=== PATIENT | female | born 1960 | race Caucasian/White ===

== ENCOUNTER → 2016-07-21 | Day surgery (SDC) | payer OTHER ==
[2016-07-07 08:33] VITALS: BMI 26.0
[~2016-07-21] VITALS: Ht 165.1 cm; Wt 72.7 kg
[~2016-07-21] MED LIST: CARI350T28 PO; CLR10 PO; DEXAMETHASONE SOD INJ 4 MG/ML VIAL ONE; LIDOCAINE HCL 2% 2 ML VIAL (20MG/ML) ONE; LORA-741 PO; MIDAZOLAM HCL 1 MG/ML 2ML VIAL ONE; MTR600X PO; ONDANSETRON INJ 2 MG/ML 2 ML VIAL ONE; PRED20TA PO; PROPOFOL IV EMULSION 10 MG/ML 20 ML VIAL IV ONE; SODIUM CHLORIDE 0.9% 500ML 500 ML IV ONE
--- NOTE | 2016-07-21 12:09 | Endo History and Physical ---
History & Physical Date of Service: Jul 21, 2016. Chief Complaint: Screening Referring Physician: Florecita Curtis History of Present Illness 55 yo CF who presents for screening colonoscopy. Past Surgical History Hx Cardiac Surgery: No Hx Internal Defibrillator: No Hx Pacemaker: No Hx Abdominal Surgery: Yes (TUBAL OVARIAN CYST, CHOLEY, LOGAN BSO) Hx of Implantable Prosthesis: No Hx Post-Op Nausea and Vomiting: Yes Hx Cancer Surgery: No Hx Thoracic Surgery: No Hx Orthopedic: Yes (RT KNEE ARTHROSCOPY) Hx Urinary Tract Surgery: No Family History None Social History Smoking Status: Current Every Day Smoker Hx Substance Use: No Hx Alcohol Use: Yes (OCCASSIONALLY) Allergies Coded Allergies: Iodine (Verified Allergy, Mild, SKIN IRRITATION, 07/21/16) TOPICAL Current Medications Reported Home Medications Medications Dose Route/Sig Max Daily Dose Days Date Category Prednisone 20 Mg Tab 20 Mg PO DIRECTED PRN 07/07/16 Reported Ativan (Lorazepam) 0.5 Mg Tab 0.5 Mg PO HS PRN 07/07/16 Reported Soma (Carisoprodol) 350 Mg Tab 350 Mg PO TID PRN 07/07/16 Reported Ibuprofen 600 Mg Tab 1 Tab PO Q6H PRN 07/07/16 Reported Vital Signs Weight (Kilograms): 72.73 Height (Feet): 5 Height (Inches): 5 Physical Exam General Appearance: WD/WN, no apparent distress Respiratory/Chest: Auscultation: breath sounds normal Cardiovascular: Heart Auscultation: RRR Abdomen: Bowel Sounds: normal Inspection & Palpation: soft, non-distended, no tenderness, guarding & rebound Assessment and Plan Assessment: 55 yo CF who presents for screening colonoscopy. Plan: Proceed with colonoscopy.
[2016-07-21 12:11] VITALS: Ht 165.1 cm; Wt 72.7 kg
--- NOTE | 2016-07-21 13:28 | GI REPORT ---
Procedure Date: 07/21/2016 12:34 PM Procedure: Colonoscopy Indications: Screening for colorectal malignant neoplasm Medicines: Monitored Anesthesia Care Complications: No immediate complications. Estimated Blood Loss: Estimated blood loss: none. Procedure: Pre-Anesthesia Assessment: - Prior to the procedure, a History and Physical was performed, and patient medications and allergies were reviewed. The patient's tolerance of previous anesthesia was also reviewed. The risks and benefits of the procedure and the sedation options and risks were discussed with the patient. All questions were answered, and informed consent was obtained. Prior Anticoagulants: The patient has taken no previous anticoagulant or antiplatelet agents. ASA Grade Assessment: II - A patient with mild systemic disease. After reviewing the risks and benefits, the patient was deemed in satisfactory condition to undergo the procedure. After I obtained informed consent, the scope was passed under direct vision. Throughout the procedure, the patient's blood pressure, pulse, and oxygen saturations were monitored continuously. The scope was introduced through the anus and advanced to the terminal ileum. The colonoscopy was performed without difficulty. The patient tolerated the procedure well. The quality of the bowel preparation was good. The terminal ileum, ileocecal valve, appendiceal orifice, and rectum were photographed. Findings: Three sessile polyps were found in the sigmoid colon and in the transverse colon. The polyps were 3 to 6 mm in size. These polyps were removed with a hot snare. Resection was complete, but the polyp tissue was only partially retrieved. The exam was otherwise without abnormality. Impression: - Three 3 to 6 mm polyps in the sigmoid colon and in the transverse colon, removed with a hot snare. Complete resection. Partial retrieval. - The examination was otherwise normal. Recommendation: - Resume previous diet. - Continue present medications. - Repeat colonoscopy for surveillance based on pathology results. - Return to primary care physician as previously scheduled. Johan Brizuela DO 07/21/2016 1:27:13 PM This report has been signed electronically. Note Initiated On: 07/21/2016 12:34 PM
--- NOTE | 2016-07-21 13:35 | Discharge Instructions ---
Endoscopy Patient Instructions Date / Procedure(s) Performed Jul 21, 2016. Colonoscopy Allergy Information Coded Allergies: Iodine (Verified Allergy, Mild, SKIN IRRITATION, 07/21/16) TOPICAL Discharge Date / Findings Jul 21, 2016. Colon polyps Medication Instructions OK to resume all medications today as prescribed Reported Home Medications Medications Dose Route/Sig Max Daily Dose Days Date Category Prednisone 20 Mg Tab 20 Mg PO DIRECTED PRN 07/07/16 Reported Ativan (Lorazepam) 0.5 Mg Tab 0.5 Mg PO HS PRN 07/07/16 Reported Soma (Carisoprodol) 350 Mg Tab 350 Mg PO TID PRN 07/07/16 Reported Ibuprofen 600 Mg Tab 1 Tab PO Q6H PRN 07/07/16 Reported Provider Instructions Activity Restrictions - No exercising or heavy lifting for 24 hours. - Do not drink alcohol the day of the procedure. - Do not drive a car or operate machinery until the day after the procedure. - Do not make any important decisions or sign important papers in 24 hours after the procedure. Following Day: - Return to full activity which may include returning to work/school. Diet Start your diet with liquids and light foods (jello, soup, juice, toast). Then eat your usual diet if not nauseated. Treatment For Common After Affects For mild abdominal pain, bloating, or excessive gas: - Rest - Eat lightly - Lie on right side Follow-Up Information Follow-up with Florecita HAM as scheduled Anesthesia Information What You Should Know You have had a procedure that required some medicine to reduce anxiety and discomfort. This treatment is called moderate sedation. After receiving the treatment, you may be sleepy, but you will be able to breathe on your own. The effects of the treatment may last for several hours. Follow these instructions along with Activity/Diet recommendations noted above: * Do NOT do anything where dizziness or clumsiness would be dangerous. * Rest quietly at home today, then you can be up and about tomorrow. * Have a responsible person stay with you the rest of today. * You may have had an I.V. today. If so, you may take the dressing off later today. Recommendations Call your doctor if: * Trouble breathing * Continuous vomiting for more than 24 hours * Temperature above 101 degrees * Severe abdominal pain or bloating * Pain not relieved by pain medicine ordered * There is increased drainage or redness from any incision * A large amount of rectal bleeding greater than 2-3 tablespoons. (If you had a polyp/s removed or have hemorrhoids, a small amount of blood - from the rectum is to be expected.) * You have any unanswered questions or concerns. IN THE EVENT OF A SERIOUS EMERGENCY, GO TO THE NEAREST EMERGENCY ROOM Your discharge instructions were prepared by provider Johan Brizuela. Patient Instructions Signature Page Debbie Dawkins Patient (or Guardian) Signature/Date: I have read and understand the instructions given to me by my caregivers. Caregiver/RN/Doctor Signature/Date: The above-named patient and/or guardian has received patient instructions on this date. + Original Patient Signature Page (only) stays with chart. Please make copy for patient.
[2016-07-21 13:58] VITALS: BP 125/76; PULSE 77; O2SAT 100
--- NOTE | 2016-07-21 14:15 | Anesthesiology Progress Note ---
Anesthesia Post Op Note Date & Time Jul 21, 2016 at 14:15 Vital Signs Pain Intensity: 0 Vital Signs Past 12 Hours Date Time Temp Pulse Resp B/P Pulse Ox O2 Delivery O2 Flow Rate FiO2 07/21/16 13:58 77 20 125/76 100 Room Air 07/21/16 13:46 77 20 137/79 100 Room Air 07/21/16 13:30 75 20 126/82 100 Room Air 07/21/16 12:20 36.8 84 20 122/71 98 Room Air Notes Mental Status: alert / awake / arousable, participated in evaluation Pt Amnestic to Procedure: Yes Nausea / Vomiting: adequately controlled Pain: adequately controlled Airway Patency, RR, SpO2: stable & adequate BP & HR: stable & adequate Hydration State: stable & adequate Anesthetic Complications: no major complications apparent
== END | disposition home or self-care (01) ==
LOC: C.GI 11:27
PROVIDERS: ATTEND Internal Medicine
DX: Z12.11 Encounter for screening for malignant neoplasm of colon (principal); D12.5 Benign neoplasm of sigmoid colon; D12.3 Benign neoplasm of transverse colon; Z90.49 Acquired absence of other specified parts of digestive tract; F17.200 Nicotine dependence, unspecified, uncomplicated; Z68.26 Body mass index [BMI] 26.0-26.9, adult

== ENCOUNTER 2016-09-14 11:08 | Emergency (ER) | payer OTHER ==
[~2016-09-14] VITALS: Ht 165.1 cm; Wt 75.5 kg
[~2016-09-14 11:08] MED LIST changes: -CLR10 PO; -DEXAMETHASONE SOD INJ 4 MG/ML VIAL ONE; -LIDOCAINE HCL 2% 2 ML VIAL (20MG/ML) ONE; -MIDAZOLAM HCL 1 MG/ML 2ML VIAL ONE; -ONDANSETRON INJ 2 MG/ML 2 ML VIAL ONE; -PROPOFOL IV EMULSION 10 MG/ML 20 ML VIAL IV ONE; -SODIUM CHLORIDE 0.9% 500ML 500 ML IV ONE
[2016-09-14 11:13] VITALS: TEMP 37.1; Ht 165.1 cm; Wt 75.5 kg
[2016-09-14] MEDS ORDERED: CLR10 PO (11:51)
[2016-09-14] MEDS ORDERED: SODIUM CHLORIDE 0.9% 500ML 500 ML IV STA (12:46)
[2016-09-14] MEDS ORDERED: ONDANSETRON INJ 2 MG/ML 2 ML VIAL IV STA (12:46)
--- NOTE | 2016-09-14 13:11 | DIAGNOSTIC IMAGING REPORT ---
CHEST ONE VIEW PORTABLE CLINICAL HISTORY: double vision mental status change COMPARISON STUDY: No previous studies for comparison. FINDINGS: The bones soft tissues and hemidiaphragms are normal. The cardiomediastinal silhouette is normal. The lungs are clear. The pulmonary vasculature is normal. IMPRESSION: Negative chest. Electronically signed by: Jh Manzano M.D. 09/14/2016 1:10 PM Dictated Date/Time: 09/14/2016 1:09 PM
[2016-09-14 13:13] LABS: BASO % 0.4 %; BASO ABS # 0.04 K/uL (0-0.2); COMPLETE YES; EOS % 4.3 %; HEMATOCRIT 45.1 % (37-47); IG% 0.2 %; LYMPH % 16.9 %; MEAN CELL VOLUME 92.4 fL (80-100); MEAN CORPUSCULAR HGB CONC 34.6 g/dl (32-36); MEAN PLATELET VOLUME 9.9 fL (7.4-10.4); MONO % 7.8 %; NEUT % 70.4 %; PLATELET COUNT 268 K/uL (130-400); RED BLOOD COUNT 4.88 M/uL (4.2-5.4); WHITE BLOOD COUNT 9.49 K/uL (4.8-10.8)
--- NOTE | 2016-09-14 13:27 | DIAGNOSTIC IMAGING REPORT ---
HEAD CT NONCONTRAST CT DOSE: 537.48 mGy.cm HISTORY: double vision and decreased vision w/ head TECHNIQUE: Multiaxial CT images of the head were performed without the use of intravenous contrast. Comparison: None. Findings: The paranasal sinuses and mastoid air cells are clear. The calvarium and skull base are intact. The ventricles and sulci are within normal limits. There is no mass, hematoma, midline shift, or acute infarct. Impression: No acute intracranial abnormality. Electronically signed by: Jh Manzano M.D. 09/14/2016 1:26 PM Dictated Date/Time: 09/14/2016 1:25 PM
[2016-09-14 13:29] LABS: CALCIUM 9.3 mg/dl (8.5-10.1); CREATININE 0.81 mg/dl (0.60-1.20)
--- NOTE | 2016-09-14 14:20 | DIAGNOSTIC IMAGING REPORT ---
Brain MRI WITHOUT CONTRAST HISTORY: Mental status change double vision and decreased vision w/ DOWELL TECHNIQUE: Multiplanar multisequence MRI of the brain was performed without the use of contrast. COMPARISON STUDY: None. FINDINGS: There are no areas of restricted diffusion to suggest acute infarction. The midline structures are intact. The paranasal sinuses are clear. The mastoid air cells are clear. The ventricles and sulci are within normal limits for age. There is no mass, hematoma, midline shift. The major vascular flow-voids at the skull base are well maintained. IMPRESSION: No acute intracranial abnormality. Electronically signed by: Jh Manzano M.D. 09/14/2016 2:19 PM Dictated Date/Time: 09/14/2016 2:11 PM
[2016-09-14 15:13] VITALS: BP 156/108; PULSE 75; O2SAT 97
--- NOTE | 2016-09-14 18:52 | EMERGENCY ROOM VISIT NOTE ---
History Report prepared by Toy: Lisha Chacon Under the Supervision of: Dr. Tomás Jain D.O. First contact with patient: 12:32 Chief Complaint: HYPERTENSION Stated Complaint: DOUBLE VISION, ELEVATED BP History of Present Illness The patient is a 55 year old female who presents to the Emergency Room with complaints of constant double vision beginning today. The patient states that 2 days ago she started to feel like she couldn't focus but cannot describe the feeling because she has never had this before. She notes that today she is seeing two images side by side horizontally. She reports that she was concerned that her blood sugar was low because her mother has diabetes but it was not low. The patient complains of double vision beginning today, lightheadedness beginning 2 days ago, headache, right eye blurriness, ringing in ears, and runny nose. She denies any cough, weakness, trouble swallowing, fevers, chest pain, shortness of breath, nausea, vomiting, diarrhea. The patient notes that if one eye is closed her symptoms are relieved completely. 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 Source of History: patient Onset: today Position: eye Quality: other (double vision) Timing: constant Modifying Factors (Relieving): other (covering right eye) Associated Symptoms: + headache, No SOB, No chest pain, No cough, No diarrhea, No fevers, No nausea, No vomiting, No weakness Note: The patient complains of double vision beginning today, lightheadedness beginning 2 days ago, left eye blurriness, ringing in ears, and runny nose. She denies any trouble swallowing. Review of Systems See HPI for pertinent positives & negatives. A total of 10 systems reviewed and were otherwise negative. Past Medical & Surgical Medical Problems: (1) No chronic problems Family History Diabetes mellitus Social History Smoking Status: Current Every Day Smoker Alcohol Use: occasionally Drug Use: none Marital Status: single Occupation Status: employed Current/Historical Medications Scheduled PRN Loratadine (Claritin), 10 MG PO DAILY PRN for PRN Allergies Coded Allergies: Iodine (Verified Allergy, Mild, SKIN IRRITATION, 09/14/16) TOPICAL Physical Exam Vital Signs Date Time Temp Pulse Resp B/P Pulse Ox O2 Delivery O2 Flow Rate FiO2 09/14/16 15:13 75 18 156/108 97 09/14/16 14:27 76 18 158/96 94 Room Air 09/14/16 13:16 85 16 155/100 97 Room Air 09/14/16 13:04 85 09/14/16 12:43 75 16 137/115 97 Room Air 09/14/16 11:13 37.1 102 20 161/104 96 Room Air Physical Exam GENERAL: sitting up in bed, alert, well appearing, well nourished, no distress, non-toxic EYE EXAM: normal conjunctiva, PERRL and EOM's intact OROPHARYNX: no exudate, no erythema, lips, buccal mucosa, and tongue normal and mucous membranes are moist NECK: supple, no nuchal rigidity, no adenopathy, non-tender LUNGS: Clear to auscultation. Normal chest wall mechanics HEART: no murmurs, S1 normal and S2 normal ABDOMEN: abdomen soft, non-tender, normo-active bowel sounds, no masses, no rebound or guarding. BACK: Back is symmetrical on inspection and there is no deformity, no midline tenderness, no CVA tenderness. SKIN: no rashes and no bruising UPPER EXTREMITIES: upper extremities are grossly normal. LOWER EXTREMITIES: No pitting edema. NEURO EXAM: Normal sensorium, cranial nerves II-XII intact, normal speech, no weakness of arms, no weakness of legs. No drift. Finger to nose intact. Gross sensation intact. Rapid alternating movements of upper extremities intact. Medical Decision & Procedures ER Provider Diagnostic Interpretation: Xray results per the radiologist and my interpretation. Other results have been interpreted by the radiologist and reviewed by me. HEAD CT NONCONTRAST Comparison: None. Findings: The paranasal sinuses and mastoid air cells are clear. The calvarium and skull base are intact. The ventricles and sulci are within normal limits. There is no mass, hematoma, midline shift, or acute infarct. Impression: No acute intracranial abnormality. Electronically signed by: Jh Manzano M.D. 09/14/2016 1:26 PM Dictated Date/Time: 09/14/2016 1:25 PM CHEST ONE VIEW PORTABLE FINDINGS: The bones soft tissues and hemidiaphragms are normal. The cardiomediastinal silhouette is normal. The lungs are clear. The pulmonary vasculature is normal. IMPRESSION: Negative chest. Electronically signed by: Jh Manzano M.D. 09/14/2016 1:10 PM Dictated Date/Time: 09/14/2016 1:09 PM Brain MRI WITHOUT CONTRAST FINDINGS: There are no areas of restricted diffusion to suggest acute infarction. The midline structures are intact. The paranasal sinuses are clear. The mastoid air cells are clear. The ventricles and sulci are within normal limits for age. There is no mass, hematoma, midline shift. The major vascular flow-voids at the skull base are well maintained. IMPRESSION: No acute intracranial abnormality. Electronically signed by: Jh Manzano M.D. 09/14/2016 2:19 PM Dictated Date/Time: 09/14/2016 2:11 PM Laboratory Results 09/14/16 12:55 Red Blood Count 4.88, Mean Corpuscular Volume 92.4, Mean Corpuscular Hemoglobin 32.0, Mean Corpuscular Hemoglobin Concent 34.6, Mean Platelet Volume 9.9, Neutrophils (%) (Auto) 70.4, Lymphocytes (%) (Auto) 16.9, Monocytes (%) (Auto) 7.8, Eosinophils (%) (Auto) 4.3, Basophils (%) (Auto) 0.4, Neutrophils # (Auto) 6.68, Lymphocytes # (Auto) 1.60, Monocytes # (Auto) 0.74, Eosinophils # (Auto) 0.41, Basophils # (Auto) 0.04 09/14/16 12:55 Test 09/14/16 12:55 White Blood Count 9.49 K/uL (4.8-10.8) Red Blood Count 4.88 M/uL (4.2-5.4) Hemoglobin 15.6 g/dL (12.0-16.0) Hematocrit 45.1 % (37-47) Mean Corpuscular Volume 92.4 fL (80-100) Mean Corpuscular Hemoglobin 32.0 pg (25-34) Mean Corpuscular Hemoglobin Concent 34.6 g/dl (32-36) Platelet Count 268 K/uL (130-400) Mean Platelet Volume 9.9 fL (7.4-10.4) Neutrophils (%) (Auto) 70.4 % Lymphocytes (%) (Auto) 16.9 % Monocytes (%) (Auto) 7.8 % Eosinophils (%) (Auto) 4.3 % Basophils (%) (Auto) 0.4 % Neutrophils # (Auto) 6.68 K/uL (1.4-6.5) Lymphocytes # (Auto) 1.60 K/uL (1.2-3.4) Monocytes # (Auto) 0.74 K/uL (0.11-0.59) Eosinophils # (Auto) 0.41 K/uL (0-0.5) Basophils # (Auto) 0.04 K/uL (0-0.2) RDW Standard Deviation 44.5 fL (36.4-46.3) RDW Coefficient of Variation 13.1 % (11.5-14.5) Immature Granulocyte % (Auto) 0.2 % Immature Granulocyte # (Auto) 0.02 K/uL (0.00-0.02) Anion Gap 9.0 mmol/L (3-11) Est Creatinine Clear Calc Drug Dose 79.8 ml/min Estimated GFR () 94.8 Estimated GFR (Non- 81.8 BUN/Creatinine Ratio 20.0 (10-20) Calcium Level 9.3 mg/dl (8.5-10.1) Laboratory results per my review. Medications Administered Medications (Trade) Dose Ordered Sig/Hilario Route Start Time Stop Time Status Last Admin Dose Admin Sodium Chloride (Nss 500ml) 500 ml @ 999 mls/hr Q31M STAT IV 09/14/16 12:46 09/14/16 13:16 DC 09/14/16 12:46 999 MLS/HR Ondansetron HCl (Zofran Inj) 4 mg NOW STAT IV 09/14/16 12:46 09/14/16 12:47 DC 09/14/16 13:12 4 MG ED Course ED COURSE: Vital signs were reviewed and normal The patients medical record was reviewed The above diagnostic studies were performed and reviewed. ED treatments and interventions as stated above. 1236: The patient was evaluated in room A9B. A complete history and physical examination was performed. 1246: Zofran Inj 4mg IV, Sodium Chloride 500 ml @ 999 mls/hr IV. 1436: I spoke to Dr. Renea Monson. She agrees with having the patient follow up. 1504: Upon reevaluation, the patient is hemodynamically stable.I discussed my findings with the patient and she understands and agrees with the treatment plan. Based on the patients age, coexisting illnesses, exam and lab findings the decision to treat as an outpatient was made. The patient remained stable while under my care. The patient appeared well at the time of discharge. Medical Decision Differential Diagnosis includes but is not limited to headache, tension headache , cluster headache, migraine, subarachnoid hemorrhage, meningitis, mass, central venous thrombus, concussion, trauma and epidural/subdural hemorrhage. Patient is a 55-year-old female who presents the ER for bilateral double vision. She also complains of mild lightheadedness. She notes that the symptoms completely resolved which closes one eye. She is completely neurologically intact. 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 CT head was unremarkable. I recommended MRI and she initially declined but eventually agreed to MRI. MRI brain was completely negative. Labs were unremarkable as well. I discussed case with neurology and they agree with an outpatient follow-up. I recommend that she follow-up with her hot shot as I do feel this is likely secondary to peripheral eye muscle since the stroke was ruled out on MRI. Patient was updated regards to this. Visual acuity was performed and was equal bilaterally. Again there is no focal deficit on exam. She was slightly hypertensive and was instructed to follow up on this. She is instructed not to drive and daughters were at bedside and understood. Patient will follow-up with ophthalmology tomorrow. Discussed with Pt concerning signs and symptoms to watch out for. Pt was instructed to follow up with their PCP and discussed with the patient their option to return to the ED at anytime for persistent or worsening symptoms. The appropriate anticipatory guidance and out-patient management, including indications for return to the emergency department, were explained at length to the patient and understood. Consults Time Called: 1430 Consulting Physician: Dr. Renea Monson - Neuro Returned Call: [address] Renea Monson. She agrees with having the patient follow up. Impression Primary Impression: Double vision Additional Impression: HTN (hypertension) Scribe Attestation The scribe's documentation has been prepared under my direction and personally reviewed by me in its entirety. I confirm that the note above accurately reflects all work, treatment, procedures, and medical decision making performed by me. Departure Information Dispostion Home / Self-Care Referrals Florecita Curtis C.R.N.P. (PCP) Forms HOME CARE DOCUMENTATION FORM, IMPORTANT VISIT INFORMATION, WORK / SCHOOL INSTRUCTIONS Patient Instructions ED Double Vision, Hypertension Control, My [facility] Additional Instructions Please follow up with your primary care doctor with in the next 24 hours. Any worsening of your symptoms, please return to the ED immediately. This includes fevers greater than 100.4, confusion, worsening of your vision, passing out, inability to walk, tingling/numbness or weakness in your arms or legs or any other concerning signs or symptoms from your standpoint. Please follow up with ophthalmology within the week. MRI of the brain was normal. You are none allowed to drive and should not drive until you are seen by ophthalmology. Problem Qualifiers Additional Impression: HTN (hypertension) Hypertension type: unspecified secondary hypertension Qualified Codes: I15.9 - Secondary hypertension, unspecified
== END 2016-09-14 15:15 | disposition home or self-care (01) ==
LOC: C.EDB 11:09 → C.EDA 15:15
DX: H53.2 Diplopia (principal); I15.9 Secondary hypertension, unspecified; Z83.3 Family history of diabetes mellitus; F17.200 Nicotine dependence, unspecified, uncomplicated

== ENCOUNTER 2024-08-04 08:42 | Observation (INO) ==
--- NOTE | 2024-08-04 09:19 | Emergency Department Note ---
Impression & Plan GI bleed Admission ED Provider Note HPI: History obtained from patient. The patient is a 63-year-old female who presents the emergency department with a chief complaint of intermittent lightheadedness. Patient states this morning when she awoke from sleep around 530 she was feeling lightheaded when she stood up, she states she took her blood pressure and it was in the 80s systolic. Patient states she was having intermittent issues with this over the next several hours and her symptoms seem to change with positional changes or turning her head. She states at times she still does have some lightheadedness when she is at rest. On arrival here to the ED the patient is hemodynamically stable, she appears to be in no acute distress. Patient does not have any focal deficits on arrival. ROS: - Per HPI Differential Diagnosis: Peripheral vertigo, orthostatic hypotension, central vertigo/posterior circulation stroke, symptomatic anemia, gastrointestinal hemorrhage, arrhythmia, amongst other potential pathologies. *Outpatient medications and allergy history reviewed. PE: General: Alert HEENT: Normocephalic, trachea midline Eyes: Extraocular eye movement is intact, no scleral erythema Pulmonary: Clear to auscultation bilaterally, no wheezing Cardio: Regular rate and rhythm GI: Abdomen is soft to palpation, rectal examination performed with female tech at the bedside shows no bleeding external hemorrhoids, stool is occult positive : No suprapubic tenderness MSK: No evidence of trauma or malformation of the extremities, no edema Skin: No evidence of rash Neuro: Alert, no focal deficits Psychiatric: Cooperative INDEPENDENT INTERPRETATIONS: playground monitor: (As interpreted by myself): - An order was placed for continuous cardiac monitoring - Patient was noted to be in sinus rhythm with a rate of 73 EKG: (As interpreted by myself): Rate: 71 Rhythm: Sinus rhythm Intervals: MD 110 ms, QTc 517 ms, QRS within normal limits ST changes: No ST elevation Time: 0909 Interventions provided in ED: -IV Protonix bolus and drip, IV fluid bolus, IV potassium chloride in half- normal saline Medical Decision Making: IV was established and lab work obtained, patient was placed on quality assurance monitor final. Patient was given IV fluids and meclizine shortly after arrival. Lab work shows no leukocytosis, hemoglobin returns at 8.2, platelet count is normal, CMP shows a hypokalemia 2.6, there is no transaminitis, troponin is negative, lipase is normal. CT imaging of the head does not show any evidence of any acute process. EKG does not show any acute ischemic changes. Patient was given IV potassium and half-normal saline given hypokalemia. Anemia appears to be new, I do not have any recent lab work on the patient aside from labs in 2019 that showed a hemoglobin greater than 16, at this time I do have concern for GI bleeding as the patient stated to me that she has had some dark stools recently. Occult stool testing was positive. Patient was therefore initiated on Protonix bolus and drip. I discussed the patient's presentation with the on-call hospitalist, Dr. Martin, and the patient will be admitted for further management and gastroenterology consultation. Patient was in agreement to this plan. Consultants/Discussions held with other healthcare providers: -Hospitalist, Dr. Martin Disposition discussion held by myself with: -Patient Diagnosis: 1. Upper GI bleeding, acute 2. Occult positive stool, acute 3. Symptomatic anemia, acute 4. Elevated BUN, acute Disposition: Admission Jh Wilson DO Emergency Medicine Past Med/Surg History Problem List (Updated 08/04/24 @ 10:36 by Jh Wilson DO) Hypokalemia Hypotension GI bleed (Acute) Encounter for pre-operative examination Hyperlipidemia Neck nodule Vitamin D deficiency Tubular adenoma of colon Parotid mass watching it for now- needs to follow up Anemia GERD (gastroesophageal reflux disease) Lupus HTN (hypertension) (Acute) Nicotine dependence Medical History Nausea and vomiting after administration of anesthetic agent Hyperlipidemia Basal cell carcinoma (03/02/20) Excisional biopsy performed by Dr. Cruz- excision margins are negative. Warthin's tumor Raynauds phenomenon Parotid mass watching it for now- needs to follow up GERD (gastroesophageal reflux disease) Lupus HTN (hypertension) Double vision Surgical History S/P LOGAN (total abdominal hysterectomy) H/O ovarian cystectomy Hx of tubal ligation S/P tonsillectomy Hx of cholecystectomy S/P knee surgery S/P Achilles tendon repair Family History Other Diabetes No family history of adverse response to anesthesia Psoriasis Denies family history of Ovarian cancer Prostate cancer Myocardial infarction Breast cancer Colorectal cancer Social History Smoking Status: Former smoker Tobacco Type: Cigarettes Age Started Using Tobacco: 20; Age Quit Using Tobacco: 62; packs per day: 1; Cigarettes Per Day: 10-15 per day -advised; Second Hand Exposure: No; Do You Dip or Chew Tobacco: No; Hx Alcohol Use: Yes (social) Alcohol type: beer Alcohol Intake Frequency: 2-3 x/Week Hx Substance Use: No Preferred Language: Zambian Communication Ability: Effective Visual Impairment: No Limitations Hearing Ability: Normal International Sales Representative Required: No Beliefs That Will Affect Care: None marital status: Single Current Living Situation: Parent current occupational status: employed 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 How many Children do You have: 3 Feels Safe at Home: Yes Childhood Exposure to Second-Hand Smoke: Yes Diet: regular caffeine: Yes during the past year weight has: remained stable Dental Care, Regularly: Yes Physical Activity Frequency: Daily Seatbelt Use: always Sunscreen Use: Yes Assistive Devices: Glasses Allergies Allergies Allergy/AdvReac Type Severity Reaction Status Date / Time iodine Allergy Mild SKIN Verified 11/13/23 11:29 IRRITATION Home Meds Home Medications Medication Instructions Recorded Confirmed lorazepam 0.5 mg tablet 0.25 mg PO DAILY PRN Anxiety 11/11/22 08/04/24 lovastatin 10 mg tablet 10 mg PO DAILY 11/23/23 08/04/24 ibuprofen 200 mg tablet 400 mg PO DAILY PRN Pain 08/04/24 08/04/24 Previous Rx's Medication Instructions Recorded omeprazole 20 mg capsule,delayed 20 mg PO BID #180 caps 08/11/23 release hydrochlorothiazide 25 mg tablet 25 mg PO DAILY #90 tabs 11/30/23 Results & Data (ED) Vital Signs Vital Signs - 24 hr 08/04/24 09:01 08/04/24 09:36 08/04/24 09:36 Temperature 36.5 C Temperature Source Oral Pulse Rate 76 Pulse Rate [Apical] 72 Pulse Rhythm Regular Pulse Strength Normal Respiratory Rate 18 14 Respiratory Effort / Characteristics Non-Labored Respiratory Depth Normal Respiratory Pattern Regular Blood Pressure 121/77 Blood Pressure [Left Arm] 95/70 L Blood Pressure Mean 91 Blood Pressure Mean [Left Arm] 78 Blood Pressure Position Sitting Pulse Oximetry 99 95 Oxygen Delivery Method Room Air Room Air Room Air Sepsis Recent Fever Within 48 Hours No Sepsis New/Unexplained Change in Mental Status N/A Sepsis Action Taken by Nursing No Action Required 08/04/24 09:36 08/04/24 09:53 08/04/24 10:00 Temperature Temperature Source Pulse Rate 69 Pulse Rate [Apical] 71 Pulse Rhythm Pulse Strength Respiratory Rate 14 Respiratory Effort / Characteristics Respiratory Depth Respiratory Pattern Blood Pressure Blood Pressure [Left Arm] 120/52 L Blood Pressure Mean Blood Pressure Mean [Left Arm] 74 Blood Pressure Position Pulse Oximetry 100 Oxygen Delivery Method Room Air Room Air Sepsis Recent Fever Within 48 Hours Sepsis New/Unexplained Change in Mental Status Sepsis Action Taken by Nursing Laboratory Data 08/04/24 09:10 08/04/24 09:10 Lab Results 08/04/24 Range/Units 09:10 WBC 9.08 (4.8-10.8) K/ul RBC 2.76 L (4.20-5.40) M/uL Hgb 8.2 L (12.0-16.0) g/dl Hct 24.3 L (37.0-47.0) % MCV 88.0 (80.0-100.0) fL MCH 29.7 (25.0-34.0) pg MCHC 33.7 (32.0-36.0) g/dL RDW Std Deviation 41.2 (36.4-46.3) fL RDW Coeff of Aurelia 13.2 (11.5-14.5) % Plt Count 307 (130-400) K/uL MPV 9.6 (9.4-12.4) fL Immature Gran % (Auto) 0.8 % Neut % (Auto) 77.8 % Lymph % (Auto) 13.8 % Haralson % (Auto) 5.7 % Eos % (Auto) 1.1 % Baso % (Auto) 0.8 % Neut # (Auto) 7.07 H (1.40-6.50) K/uL Lymph # (Auto) 1.25 (1.20-3.40) K/uL Haralson # (Auto) 0.52 (0.11-0.59) K/uL Eos # (Auto) 0.10 (0.00-0.50) K/uL Baso # (Auto) 0.07 (0.00-0.20) K/uL Immature Gran # (Auto) 0.07 (0.01-0.20) K/uL PT 10.7 (9.0-12.0) Seconds INR 1.0 (0.9-1.1) Sodium 136 (136-145) mmol/L Potassium 2.6 L (3.5-5.1) mmol/L Chloride 94 L (98-107) mmol/L Carbon Dioxide 33 H (21-32) mmol/L Anion Gap 9 (3-11) BUN 34 H (6-23) mg/dl Creatinine 0.91 (0.6-1.2) mg/dl Est Cr Clr Drug Dosing 64.1 ml/min eGFR 70.89 BUN/Creatinine Ratio 37.4 H (10-20) Glucose 110 H (70-99(Fasting)) mg/dl Calcium 9.6 (8.6-10.3) mg/dl Total Bilirubin 0.4 (0.2-1.0) mg/dl AST 17 (13-39) U/L ALT 13 (7-52) U/L Alkaline Phosphatase 50 (34-104) U/L Troponin I High Sens 2.7 (0-14) pg/ml Total Protein 6.9 (6.0-8.3) gm/dl Albumin 4.5 (3.4-5.0) gm/dl Globulin 2.4 L (2.5-4.0) gm/dl Albumin/Globulin Ratio 1.9 (0.9-2) Lipase 22 (11-82) U/L Administered Medications Discontinued Medications Sodium Chloride (Nss) 1,000 mls @ 999 mls/hr IV .Q1H1M ONE Stop: 08/04/24 10:17 Last Admin: 08/04/24 09:35 Dose: 999 mls/hr Documented By: MAYO Meclizine HCl (Meclizine Hcl 25 Mg Tab) 25 mg PO NOW STA Stop: 08/04/24 09:18 Last Admin: 08/04/24 09:33 Dose: 25 mg Documented By: MAYO Imaging Data Radiologist's Impression: Head CT 08/04/24 09:15 CT head/brain wo con CLINICAL HISTORY: 63 years-old Female with dizzy. Acute dizziness TECHNIQUE: Multiple axial CT images of the head were obtained without contrast. A dose lowering technique was utilized adhering to the principles of ALARA. CT DOSE: 625.8 mGy.cm COMPARISON: 11/23/2023 FINDINGS: No acute intracranial hemorrhage, midline shift, intracranial mass, hydrocephalus, territorial ischemia or abnormal extra-axial collection. Partially empty sella. Mild involutional changes. The calvarium is intact. The paranasal sinuses, mastoid air cells, and middle ear cavities are clear. IMPRESSION: No acute intracranial abnormality. ACT 112: Negative or not required by law. The above report was generated using voice recognition software. It may contain grammatical, syntax or spelling errors. Electronically signed by: Kobe Reyna M.D. 08/04/2024 9:41 AM Discharge Plan Visit Data Chief Complaint: Hypotension Stated Complaint: ORTHOSTATIC BP, SOB, HEAD PAIN, ROOM SPINNING ED Provider: Jh Wilson Discharge Problem: GI bleed Forms Stand Alone Forms: [facility], [facility] Prescriptions Prescriptions: No Action hydrochlorothiazide 25 mg tablet 25 mg PO DAILY Qty: 90 3RF omeprazole 20 mg capsule,delayed release(DR/EC) 20 mg PO BID Qty: 180 3RF lorazepam 0.5 mg tablet 0.25 mg PO DAILY PRN (Reason: Anxiety) lovastatin 10 mg tablet 10 mg PO DAILY Rx Instructions: TAKE ONE TABLET BY MOUTH EVERY DAY ibuprofen 200 mg Tablet 400 mg PO DAILY PRN (Reason: Pain) Referrals Referrals: Flako Jung DO [Primary Care Provider] -
[2024-08-04] MEDS: MECLIZINE HCL 25 MG TAB PO STA (09:33)
[2024-08-04 09:35] LABS: Basophils # (auto) 0.07 K/uL (0.00-0.20); Basophils % (auto) 0.8 %; Eosinophils % (auto) 1.1 %; Hematocrit (blood only) 24.3 % (37.0-47.0); Hemoglobin 8.2 g/dl (12.0-16.0); Immature Granulocytes # (auto) 0.07 K/uL (0.01-0.20); Immature Granulocytes % (auto) 0.8 %; Lymphocytes # (auto) 1.25 K/uL (1.20-3.40); Lymphocytes % (auto) 13.8 %; Mean Corpuscular Hemoglobin 29.7 pg (25.0-34.0); Mean Corpuscular Hgb Conc 33.7 g/dL (32.0-36.0); Mean Platelet Volume 9.6 fL (9.4-12.4); Monocytes # (auto) 0.52 K/uL (0.11-0.59); Monocytes % (auto) 5.7 %; Neutrophils # (auto) 7.07 K/uL (1.40-6.50); Neutrophils % (auto) 77.8 %; Platelet Count 307 K/uL (130-400); RDW Coefficient of Variation 13.2 % (11.5-14.5); RDW Standard Deviation 41.2 fL (36.4-46.3); Red Blood Count 2.76 M/uL (4.20-5.40); White Blood Count 9.08 K/ul (4.8-10.8)
[2024-08-04] MEDS: SODIUM CHLORIDE 0.9% 1,000 ML IV ONE (09:35)
--- NOTE | 2024-08-04 09:42 | CT Scan Report ---
CT head/brain wo con CLINICAL HISTORY: 63 years-old Female with dizzy. Acute dizziness TECHNIQUE: Multiple axial CT images of the head were obtained without contrast. A dose lowering tech nique was utilized adhering to the principles of ALARA. CT DOSE: 625.8 mGy.cm COMPARISON: 11/23/2023 FINDINGS: No acute intracranial hemorrhage, midline shift, intracranial mass, hydrocephalus, territorial ischem ia or abnormal extra-axial collection. Partially empty sella. Mild involutional changes. The calvarium is intact. The paranasal sinuses, mastoid air cells, and middle ear cavities are clear . IMPRESSION: No acute intracranial abnormality. ACT 112: Negative or not required by law. The above report was generated using voice recognition software. It may contain grammatical, syntax o r spelling errors. Electronically signed by: Kobe Reyna M.D. 08/04/2024 9:41 AM
[2024-08-04 09:48] LABS: Albumin Globulin Ratio 1.9 (0.9-2); Albumin Level 4.5 gm/dl (3.4-5.0); BUN Creatinine Ratio 37.4 (10-20); Bilirubin,Total 0.4 mg/dl (0.2-1.0); Calcium 9.6 mg/dl (8.6-10.3); Creatinine Clr Calc Pharmacy 64.1 ml/min; Globulin 2.4 gm/dl (2.5-4.0); Potassium 2.6 mmol/L (3.5-5.1); Total Protein 6.9 gm/dl (6.0-8.3)
[2024-08-04 09:54] LABS: Troponin I High Sensitivity 2.7 pg/ml (0-14)
[2024-08-04 10:06] LABS: Prothrombin Time 10.7 Seconds (9.0-12.0)
--- NOTE | 2024-08-04 10:27 | History & Physical Report ---
Date of Service August 04, 2024 Assessment & Plan (1) GI bleed: (2) Anemia: (3) Hypotension: (4) Dizziness: (5) Hypokalemia: Plan Patient is a 63-year-old female with a Pmhx of HTN and GERD. she presented to the ER today due to hypotension and dizziness. Her hypotension resolved with 1 L NSS bolus. She is being admitted for a GI bleed workup due to hemoglobin and positive occult stool. She was also found to be hypokalemic; will replete electrolytes on admission. #GI bleed/anemia patient with occasional melena x1-2 months, fatigue, dizziness Hemoccult positive on admission BUN elevated, 34 hemoglobin 8.2 (only previous from 2019 was 16.4) Protonix drip started in ED; continue N.p.o. H&H recheck Q4H anemia labs ordered on admission - iron studies, b12, folate GI consulted - anticipate EGD Colonoscopy 2016 showed 2 tubular adenomas -> was to have 5 year repeat scan but deferred at wellness visit 07/2023 #hypotension/dizziness suspect 2/2 to GI bleed vs HCTZ use 95/70 in ED; resolved with 1L NSS bolus head CT negative hold HCTZ continue gentle IV resuscitation zofran prn #hypokalemia 2/2 to HCTZ use K+ 2.6 started on NSS and 20 meQ K+ gentle resuscitation at 150 ml/hr in ED; continue additional 60 MeQ IV k rider ordered on admission Mg stable hold HCTZ trend Mg and BMP Chronic stable diagnoses: HTN - hypotensive as above; holding HCTZ GERD - hold omeprazole with IV Protonix HLD - holding statin with NPO status; resume when no longer NPO VTE ppx: SCDs; Defer chemical PPx with active bleeding Diet: NPO Dispo: med/tele 1430 - Hgb dropped to 6.2, likely component of hemodilution however significantly dropped. 2 units pRBC ordered. Blood consent forms signed. Will continue to trend H&H Q4H. Potassium increased to 3.0, continue ordered K riders. Hypotensive - 93/53 1800 - patient reassessed prior to being taken for EGD. Blood pressure improved to 107/51 unit of blood given. Admission and Anticipated Discharge Date Admission Date: 08/04/24 History of Present Illness Chief Complaint: hypotension Primary Care Provider: Flako Jung DO Patient is a 63-year-old female with a Pmhx of HTN and GERD. she presented to the ER today due to hypotension and dizziness. Her hypotension resolved with 1 L NSS bolus. She is being admitted for a GI bleed workup due to hemoglobin and positive occult stool. She was also found to be hypokalemic; will replete electrolytes on admission. Patient seen at bedside with her boyfriend present. 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 She stated that on Thursday she was feeling off, fatigue and just overall was not feeling good. She thought she was fighting the bugs going around. Despite the fatigue she still is able to work a 14-hour shift yesterday. She then stated that yesterday she was dizzy and would develop nausea with the dizziness; denies vomiting. The dizziness is positional. When she took her blood pressure this morning it was 80/52 so she did not take her morning blood pressure medication. She also endorses melena for approximately 1 to 2 months, has these episodes about once a week. She denies any bright red blood in stool, hematuria, hematemesis. She also endorses feeling cold for the past few months, more than her baseline. Patient denies headache, vision changes, dyspnea, chest pain, abdominal pain, vomiting, edema. She denies frequent ibuprofen use, did take 2 yesterday because she was not feeling well. She denies any past history of anemia, GI bleeds, known gastric ulcers. She did have anemia while . patient last ate this morning at 530, had 2 cups of coffee, no meal today. Regarding her hypokalemia, was started on hydrochlorothiazide November 2023 due to edema with amlodipine use which was discontinued. She has been taking it regularly without any adverse reactions. She does endorse frequent muscle cramps in her feet, however is a nurse and relates it to working. She also had decreased p.o. intake yesterday due to the nausea. She tries to drink lots of water daily. Patient does have a smoking history, quit smoking in April 2023. She does occasionally drink alcohol, beer on the weekends, no daily use. She denies past history of CVA, DM, previous VTE. She did not take her home medications this morning; will hold on admission with n.p.o. status. She wishes to be full code at this time. Allergies Allergy/AdvReac Type Severity Reaction Status Date / Time iodine Allergy Mild SKIN Verified 11/13/23 11:29 IRRITATION Home Medications Medication Instructions Recorded Confirmed Type lorazepam 0.5 mg tablet 0.25 mg PO DAILY PRN Anxiety 11/11/22 08/04/24 History omeprazole 20 mg capsule,delayed 20 mg PO BID #180 caps 08/11/23 08/04/24 Rx release lovastatin 10 mg tablet 10 mg PO DAILY 11/23/23 08/04/24 History hydrochlorothiazide 25 mg tablet 25 mg PO DAILY #90 tabs 11/30/23 08/04/24 Rx ibuprofen 200 mg tablet 400 mg PO DAILY PRN Pain 08/04/24 08/04/24 History Past Med/Surg History Problem List (Updated 08/04/24 @ 11:10 by Luz Leach PA-C) Dizziness Hypokalemia Hypotension GI bleed (Acute) Encounter for pre-operative examination Hyperlipidemia Neck nodule Vitamin D deficiency Tubular adenoma of colon Parotid mass watching it for now- needs to follow up Anemia GERD (gastroesophageal reflux disease) Lupus HTN (hypertension) (Acute) Nicotine dependence Medical History Nausea and vomiting after administration of anesthetic agent Hyperlipidemia Basal cell carcinoma (03/02/20) Excisional biopsy performed by Dr. Cruz- excision margins are negative. Warthin's tumor Raynauds phenomenon Parotid mass watching it for now- needs to follow up GERD (gastroesophageal reflux disease) Lupus HTN (hypertension) Double vision Surgical History S/P LOGAN (total abdominal hysterectomy) H/O ovarian cystectomy Hx of tubal ligation S/P tonsillectomy Hx of cholecystectomy S/P knee surgery S/P Achilles tendon repair Family History Other Diabetes No family history of adverse response to anesthesia Psoriasis Denies family history of Ovarian cancer Prostate cancer Myocardial infarction Breast cancer Colorectal cancer Social History Smoking Status: Former smoker Tobacco Type: Cigarettes Age Started Using Tobacco: 20; Age Quit Using Tobacco: 62; packs per day: 1; Cigarettes Per Day: 10-15 per day -advised; Second Hand Exposure: No; Do You Dip or Chew Tobacco: No; Hx Alcohol Use: Yes (social) Alcohol type: beer Alcohol Intake Frequency: 2-3 x/Week Hx Substance Use: No Preferred Language: Thai Communication Ability: Effective Visual Impairment: No Limitations Hearing Ability: Normal Wire 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 Required: No Beliefs That Will Affect Care: None marital status: Single Current Living Situation: Parent current occupational status: employed 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 Non-toxic appearing. HEENT- EOMI, mucous membranes moist. Hearing grossly intact. Heart-normal S1 and S2. No murmurs, rubs or gallops. Lungs-clear bilaterally, no respiratory distress, no accessory muscle use. Abdomen-normal bowel sounds and soft. No ascites noted. Non-tender. Extremities- no clubbing, cyanosis, or edema. Rheumatologic-normal range of motion. Psychiatric-normal affect. Results & Data Results & Data Vital Signs (Past 12 Hours) Vital Signs Temp Pulse Pulse Resp BP BP Pulse Ox 08/04/24 10:00 71 14 120/52 L 100 08/04/24 09:53 69 08/04/24 09:36 08/04/24 09:36 08/04/24 09:36 72 14 95/70 L 95 08/04/24 09:01 36.5 C 76 18 121/77 99 O2 Del Method 08/04/24 10:00 Room Air 08/04/24 09:53 08/04/24 09:36 Room Air 08/04/24 09:36 Room Air 08/04/24 09:36 Room Air 08/04/24 09:01 Room Air Laboratory Results Reviewed CBC, CMP, PT/INR, trop Diagnostic Findings reviewed head CT Medications Administered ED: 1L NSS bolus, protonix drip, antivert, 1ooo mL NSS w/ 20 meQ K+ ECG Additional Comments: ordered Code Status & VTE Plan Code Status full VTE Prophylaxis Plan VTE Prophylaxis will be ordered: Yes Reason for no VTE drug order: Treatment not indicated (active bleeding) Supervising Physician Co-Signing Physician Notes I personally saw and examined the patient. I independently reviewed the labs, EKG, imaging, problem list, medication list, past medical history and family history. I verified all barkley points and agree with Luz Leach PA-C with the following exceptions and/or additions: 63 year old female presents to the ER with 1-2 months of melena, fatigue and weakness. O/E HS RRR, no murmurs, Chest CTAB, Abdo SNT A/P Acute blood loss anemia / melena / acute GI bleed - IV pantoprazole. Tranfuse < 7. NPO. Consult GI. Hypotension - hold HCTZ PG Care Time/CCT Total # of Minutes Spent Total Time Spent with Patient: Total time spent is greater than 50% in coordination of care (as documented) at patient's floor/unit and/or counseling patient: Coding Level of Care Code 62578 INT INP/OBS CARE 3/75MIN Diagnoses GI bleed K92.2 Anemia D64.9 Hypotension I95.9 Dizziness R42 Hypokalemia E87.6
[2024-08-04] MEDS: SODIUM CHLOR 0.45% + 20MEQ KCL 20 MEQ/1,000 ML BAG IV SCH (10:55)
[2024-08-04] MEDS: PANTOprazole 80 MG in DEXTROSE 5% 100 ML IV ONE (10:56)
[2024-08-04] MEDS: PANTOPRAZOLE BOLUS/DRIP IV STA (11:03)
[2024-08-04] MEDS: PANTOprazole 40 MG in DEXTROSE 5% MINI-B 100 ML IV SCH (11:21)
[2024-08-04] MEDS: POTASSIUM CHLORIDE / WTR 10 MEQ/100 ML PLCT IV SCH (11:24)
[2024-08-04 11:50] LABS: Magnesium 2.1 mg/dl (1.7-2.4); Reticulocyte % 3.19 % (0.50-2.00); Reticulocytes # 0.09 10^6/uL (0.020-0.100)
[2024-08-04 12:09] LABS: Ferritin 47.7 ng/ml (8-388)
[2024-08-04 12:38] LABS: Folate (Folic Acid),Ser orPlas 16.04 ng/ml (>5.38)
[2024-08-04] MEDS ORDERED: ONDANSETRON INJ 2 MG/ML 2 ML VIAL IV PRN (13:02)
--- NOTE | 2024-08-04 13:04 | Gastrointestinal Consultation ---
Date of Consultation August 04, 2024 Assessment & Plan (1) GI bleed: 63 year old female with history of lupus, HTN, dyslipidemia and others below admitted through the ED w/ symptomatic anemia and report of melena - GI was asked to evaluate for suspected UGI bleed. She suggests a change in her bowel habits over the weekend endorses dark, black stools. Noted Thursday felt quite fatigue, weak, tired wasnt able to do much around the house. As symptoms persisted she sought ED care. Denies abd pain. No nausea/vomiting. No GERD on PPI therapy. No dysphaiga. + Weight gain. Had coffee around 0500. In the ED she has had intermittent hypotension, negative head CT, anemia w/ HGB 8.2 w/ BUN of 34. She is NPO on IV PPI w/ pending iron studies. Maintain NPO status EGD today IV PPI bolus drip Trend H&H Monitor and document GI output Transfuse PRN per primary service No NSAIDs I spent a total of 60 minutes on the date of service in review of patient's record, and previously obtained information in person and appropriate medical visit, discussion and education of plan, with patient and/or caregiver, placing orders for tests/referral/procedures as medically necessary and documentation of pertinent clinical information in patient's medical records for their visit today. We appreciate assistance in the management of any serological abnormality and corrections to include: hemoglobin >7, INR <2, platelets >50,000, potassium levels >3.5 but <5.3, and sodium levels within 5 points of the reference range prior to endoscopic evaluation. Supervising Physician Co-Signing Physician Notes Probable peptic ulcer disease related to NSAIDs . Correct potassium. Blood products. Maintain n.p.o. Possible EGD today. History of Present Illness Reason for Consultation: GI bleed Requesting Physician: Chidi Martin MD Attending Physician: Chidi Martin MD History of Present Illness 63 year old female with history of lupus, HTN, dyslipidemia and others below admitted through the ED w/ symptomatic anemia and report of melena - GI was asked to evaluate for suspected UGI bleed. She suggests a change in her bowel habits over the weekend endorses dark, black stools. Noted Thursday felt quite fatigue, weak, tired wasnt able to do much around the house. As symptoms persisted she sought ED care. Denies abd pain. No nausea/vomiting. No GERD on PPI therapy. No dysphaiga. + Weight gain. Had coffee around 0500. In the ED she has had intermittent hypotension, negative head CT, anemia w/ HGB 8.2 w/ BUN of 34. She is NPO on IV PPI w/ pending iron studies. Drinks a few beers on weekends No tobacco Does use NSAIDs periodically No AC Head CT 2024: No acute intracranial abnormality. Colonoscopy 2016: three 3-6 mm polyps Allergies Allergy/AdvReac Type Severity Reaction Status Date / Time iodine Allergy Mild SKIN Verified 11/13/23 11:29 IRRITATION Home Medications Medication Instructions Recorded Confirmed Type lorazepam 0.5 mg tablet 0.25 mg PO DAILY PRN Anxiety 11/11/22 08/04/24 History omeprazole 20 mg capsule,delayed 20 mg PO BID #180 caps 08/11/23 08/04/24 Rx release lovastatin 10 mg tablet 10 mg PO DAILY 11/23/23 08/04/24 History hydrochlorothiazide 25 mg tablet 25 mg PO DAILY #90 tabs 11/30/23 08/04/24 Rx ibuprofen 200 mg tablet 400 mg PO DAILY PRN Pain 08/04/24 08/04/24 History Patient History Medical History Nausea and vomiting after administration of anesthetic agent Hyperlipidemia Basal cell carcinoma (03/02/20) Excisional biopsy performed by Dr. Cruz- excision margins are negative. Warthin's tumor Raynauds phenomenon Parotid mass watching it for now- needs to follow up GERD (gastroesophageal reflux disease) Lupus HTN (hypertension) Double vision Surgical History S/P LOGAN (total abdominal hysterectomy) H/O ovarian cystectomy Hx of tubal ligation S/P tonsillectomy Hx of cholecystectomy S/P knee surgery S/P Achilles tendon repair Family History Other Diabetes No family history of adverse response to anesthesia Psoriasis Denies family history of Ovarian cancer Prostate cancer Myocardial infarction Breast cancer Colorectal cancer Social History Smoking Status: Former smoker Tobacco Type: Cigarettes Age Started Using Tobacco: 20; Age Quit Using Tobacco: 62; packs per day: 1; Cigarettes Per Day: 10-15 per day -advised; Second Hand Exposure: No; Do You Dip or Chew Tobacco: No; Hx Alcohol Use: Yes (social) Alcohol type: beer Alcohol Intake Frequency: 2-3 x/Week Hx Substance Use: No Preferred Language: Somali Communication Ability: Effective Visual Impairment: No Limitations Hearing Ability: Normal Containers Sales Representative Required: No Beliefs That Will Affect Care: None marital status: Single Current Living Situation: Parent current occupational status: employed 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 Physical Exam Constitutional: WD/WN, vitals as above Respiratory: normal respiratory effort, lungs clear to auscultation Cardiovascular: Rate/Rhythm: regular rate and regular rhythm Gastrointestinal (Abdomen): normal bowel sounds, soft, nontender, no hepatosplenomegaly Skin: no rashes, warm and dry Results & Data Vital Signs (Past 12 Hours) Vital Signs Temp Pulse Pulse Resp BP BP Pulse Ox 08/04/24 12:39 82 19 96 08/04/24 12:09 77 20 08/04/24 12:00 95/59 L 08/04/24 11:57 78 16 08/04/24 11:36 76 15 08/04/24 11:00 76 15 08/04/24 10:39 77 18 113/67 97 08/04/24 10:12 75 17 99 08/04/24 10:09 120/52 L 08/04/24 10:00 71 14 120/52 L 100 08/04/24 09:53 69 08/04/24 09:36 08/04/24 09:36 08/04/24 09:36 72 14 95/70 L 95 08/04/24 09:01 97.7 F 76 18 121/77 99 O2 Del Method 08/04/24 12:39 Room Air 08/04/24 12:09 08/04/24 12:00 08/04/24 11:57 08/04/24 11:36 08/04/24 11:00 08/04/24 10:39 Room Air 08/04/24 10:12 Room Air 08/04/24 10:09 08/04/24 10:00 Room Air 08/04/24 09:53 08/04/24 09:36 Room Air 08/04/24 09:36 Room Air 08/04/24 09:36 Room Air 08/04/24 09:01 Room Air Laboratory Results 08/04/24 Range/Units 09:10 WBC 9.08 (4.8-10.8) K/ul RBC 2.76 L (4.20-5.40) M/uL Hgb 8.2 L (12.0-16.0) g/dl Hct 24.3 L (37.0-47.0) % MCV 88.0 (80.0-100.0) fL MCH 29.7 (25.0-34.0) pg MCHC 33.7 (32.0-36.0) g/dL RDW Std Deviation 41.2 (36.4-46.3) fL RDW Coeff of Aurelia 13.2 (11.5-14.5) % Plt Count 307 (130-400) K/uL MPV 9.6 (9.4-12.4) fL Immature Gran % (Auto) 0.8 % Neut % (Auto) 77.8 % Lymph % (Auto) 13.8 % Dent % (Auto) 5.7 % Eos % (Auto) 1.1 % Baso % (Auto) 0.8 % Reticulocyte % (Auto) 3.19 H (0.50-2.00) % Neut # (Auto) 7.07 H (1.40-6.50) K/uL Lymph # (Auto) 1.25 (1.20-3.40) K/uL Dent # (Auto) 0.52 (0.11-0.59) K/uL Eos # (Auto) 0.10 (0.00-0.50) K/uL Baso # (Auto) 0.07 (0.00-0.20) K/uL Reticulocyte # 0.090 (0.020-0.100) 10^6/uL Immature Gran # (Auto) 0.07 (0.01-0.20) K/uL PT 10.7 (9.0-12.0) Seconds INR 1.0 (0.9-1.1) Sodium 136 (136-145) mmol/L Potassium 2.6 L (3.5-5.1) mmol/L Chloride 94 L (98-107) mmol/L Carbon Dioxide 33 H (21-32) mmol/L Anion Gap 9 (3-11) BUN 34 H (6-23) mg/dl Creatinine 0.91 (0.6-1.2) mg/dl Est Cr Clr Drug Dosing 64.1 ml/min eGFR 70.89 BUN/Creatinine Ratio 37.4 H (10-20) Glucose 110 H (70-99(Fasting)) mg/dl Calcium 9.6 (8.6-10.3) mg/dl Magnesium 2.1 (1.7-2.4) mg/dl Iron 35 (35-150) mcg/dl TIBC 427 (250-450) mcg/dl Transferrin 305 (200-360) mg/dl Transferrin % Sat 8 L (15-50) % Ferritin 47.7 (8-388) ng/ml Total Bilirubin 0.4 (0.2-1.0) mg/dl AST 17 (13-39) U/L ALT 13 (7-52) U/L Alkaline Phosphatase 50 (34-104) U/L Lactate Dehydrogenase 152 (86-244) U/L Troponin I High Sens 2.7 (0-14) pg/ml Total Protein 6.9 (6.0-8.3) gm/dl Albumin 4.5 (3.4-5.0) gm/dl Globulin 2.4 L (2.5-4.0) gm/dl Albumin/Globulin Ratio 1.9 (0.9-2) Lipase 22 (11-82) U/L Vitamin B12 387 (180-914) pg/ml Folate 16.04 (>5.38) ng/ml PG Care Time/CCT Total # of Minutes Spent Total Time Spent with Patient: Total time spent is greater than 50% in coordination of care (as documented) at patient's floor/unit and/or counseling patient: Coding Level of Care Code 02139 INT INP/OBS CARE /MIN Diagnoses GI bleed K92.2
--- NOTE | 2024-08-04 13:46 | Electrocardiogram Report ---
Test Reason : Blood Pressure : */* mmHG Vent. Rate : 71 BPM Atrial Rate : 71 BPM P-R Int : 110 ms QRS Dur : 94 ms QT Int : 476 ms P-R-T Axes : 36 63 37 degrees QTcB Int : 517 ms Sinus rhythm Nonspecific ST and T wave abnormality Prolonged QT Abnormal ECG When compared with ECG of 25-Jul-2014 17:39, Nonspecific T wave abnormality now evident in Anterolateral leads QT has lengthened Confirmed by Arian Escobedo ([id number]) on 08/04/2024 1:46:09 PM Referred By: REFERRED SELF Confirmed By: Arian Escobedo
[2024-08-04 14:38] LABS: Hematocrit (blood only) 18.7 % (37.0-47.0); Hemoglobin 6.2 g/dl (12.0-16.0)
[2024-08-04] MEDS ORDERED: SODIUM CHLORIDE 0.9% 100 ML IV PRN (14:53)
[2024-08-04] MEDS ORDERED: SODIUM CHLORIDE 0.9% 50 ML IV PRN (14:53)
--- NOTE | 2024-08-04 17:02 | Anesthesiology Consultation ---
Date of Service August 04, 2024 Assessment & Plan Chart Review Chart Review: Acceptable Risk for Surgery and Patient NOT seen in Pre Admission Testing procedure pending resuscitation Consults Requested none History Surgery Operation Date: 08/04/24 08:50 Proposed Procedures p Esophagogastroduodenoscopy - Yuri Romero MD Height/Weight Height: 5 ft 5 in Weight: 74.8 kg Allergies Allergy/AdvReac Type Severity Reaction Status Date / Time iodine Allergy Mild SKIN Verified 11/13/23 11:29 IRRITATION Medications Home Medications Medication Instructions Recorded Confirmed Last Taken lorazepam 0.5 mg tablet 0.25 mg PO DAILY PRN Anxiety 11/11/22 08/04/24 Unknown omeprazole 20 mg capsule,delayed 20 mg PO BID #180 caps 08/11/23 08/04/24 08/03/24 release lovastatin 10 mg tablet 10 mg PO DAILY 11/23/23 08/04/24 08/03/24 hydrochlorothiazide 25 mg tablet 25 mg PO DAILY #90 tabs 11/30/23 08/04/24 08/03/24 ibuprofen 200 mg tablet 400 mg PO DAILY PRN Pain 08/04/24 08/04/24 Unknown Active Medications Generic Name Dose Route Start Last Admin Trade Name Freq PRN Reason Stop Dose Admin Potassium Chloride/Sodium Chloride 20 meq in 1,000 mls @ 150 mls/hr 08/04/24 10:00 08/04/24 10:55 1/2 Nss + 20meq Kcl 1000ml IV 08/05/24 09:59 150 mls/hr .[id number] JORGE Administration Pantoprazole Sodium 40 mg/ 100 mls @ 20 mls/hr 08/04/24 10:45 08/04/24 16:36 Dextrose IV 09/03/24 10:44 8 mg/hr Q5H JORGE 20 mls/hr Administration 8 MG/HR Past Medical History Medical History Nausea and vomiting after administration of anesthetic agent Hyperlipidemia Basal cell carcinoma (03/02/20) Excisional biopsy performed by Dr. Cruz- excision margins are negative. Warthin's tumor Raynauds phenomenon Parotid mass watching it for now- needs to follow up GERD (gastroesophageal reflux disease) Lupus HTN (hypertension) Double vision Past Family History Family History Other Diabetes No family history of adverse response to anesthesia Psoriasis Denies family history of Ovarian cancer Prostate cancer Myocardial infarction Breast cancer Colorectal cancer Past Surgical History Surgical History S/P LOGAN (total abdominal hysterectomy) H/O ovarian cystectomy Hx of tubal ligation S/P tonsillectomy Hx of cholecystectomy S/P knee surgery S/P Achilles tendon repair Social History Smoking Status: Former smoker tobacco type: cigarettes Smoking cigarettes per day: 10-15 per day -advised Do You Dip or Chew Tobacco: No Hx Alcohol Use: Yes (social) Alcohol type: beer Hx Substance Use: No substance use type: does not use Physical Exam Vital Signs Last Vital Signs Temp 36.8 C 08/04/24 16:34 Pulse 75 08/04/24 16:34 Resp 17 08/04/24 16:34 BP 87/52 L 08/04/24 16:34 Pulse Ox 96 08/04/24 16:34 O2 Del Method Room Air 08/04/24 15:21 O2 Flow Rate 0 08/04/24 16:46 Testing Laboratory Results 08/04/24 14:10 08/04/24 14:10 PT 10.7 Seconds (9.0-12.0) 08/04/24 09:10 INR 1.0 (0.9-1.1) 08/04/24 09:10 Blood Type A Negative 08/04/24 14:10 Antibody Screen NEGATIVE 08/04/24 14:10
--- NOTE | 2024-08-04 17:22 | History & Physical Bridge Note ---
Date of Service August 04, 2024 History & Physical Bridge Note Plan on procedure this p.m. for gastrointestinal bleeding. Noted last vitals blood pressure was low. Patient visited the emergency room pressure 74. Blood is hanging with infusion over 2 to 3 hours. Reviewed with nursing recommend run current unit and with pressure bag if available hanging second unit. They are to notify me once a second unit is hung with her vitals at that time. Remain NPO.
[2024-08-04] MEDS ORDERED: ePHEDrine sulfate 50 MG/ML AMP IV PRN (17:35)
[2024-08-04] MEDS ORDERED: fentaNYL citrate PF 100 MCG/2 ML VIAL IV PRN (17:35)
[2024-08-04] MEDS ORDERED: ATROPINE SULFATE 0.1 MG/ML 10ML SYR IV PRN (17:35)
[2024-08-04] MEDS ORDERED: DROPERIDOL 5 MG/2 ML VIAL IV PRN (17:35)
[2024-08-04] MEDS ORDERED: ONDANSETRON INJ 2 MG/ML 2 ML VIAL ONE (17:58)
[2024-08-04] MEDS ORDERED: DEXAMETHASONE SOD INJ 4 MG/ML VIAL ONE (17:58)
[2024-08-04] MEDS ORDERED: LIDOCAINE 2% 2 ML VIAL/AMP(20MG/ML) INFIL ONE (17:58)
[2024-08-04] MEDS ORDERED: PROPOFOL IV EMULSION 10 MG/ML 20 ML VIAL IV ONE (17:58)
[2024-08-04] MEDS ORDERED: NOREPINEPHRINE BITARTRATE 1 MG/ML 4 ML VIAL IV ONE (18:00)
[2024-08-04] MEDS ORDERED: MIDAZOLAM HCL 1 MG/ML 2ML VIAL ONE (18:06)
[2024-08-04] MEDS ORDERED: fentaNYL citrate PF 100 MCG/2 ML VIAL ONE (18:06)
[2024-08-04] MEDS ORDERED: KETAMINE HCL 10MG/ML SYR ONE (18:19)
--- NOTE | 2024-08-04 19:00 | Communication Note ---
Date of Service: August 04, 2024 EGD No blood noted in the upper GI tract. There was a 2 cm very broad-based polyp along the lesser curvature. This was not bleeding. There were some superficial erosions though no carlos ulcerations. Manipulation of the polyp head examining the circumferential polyp head did not reveal bleeding. Examination of the inferior aspect of the polyp on retroflexion also did not show visible vessel. This polyp was on a very broad stalk. Certainly risk of bleeding with removal. I believe this may be the bleeding source. But in the absence of carlos hemorrhage or a visible vessel did not seem like a lesion appropriate to move at 7 PM in the evening. Observe for further bleeding transfuse as needed. If carlos evidence of recurrent hemorrhage consider prompt CTA to rule out source other than this polyp and/or confirm. Polyp potentially removal with IR or surgical backup.
--- NOTE | 2024-08-04 19:06 | GI REPORT ---
[facility] Patient: SKY MARTINEZ : 1960 Sex at : Female Age: 63 Years Procedure: Upper GI endoscopy Date: 08/04/2024 Attending Physician: Yuri Romero MD Referring MD: Flako Jung; Chidi Martin MD Indications: - Active gastrointestinal bleeding Medications: - General Anesthesia - See the Anesthesia note for documentation of the administered medications Complications: - No immediate complications. Estimated Blood Loss: - Estimated blood loss was minimal. Procedure: - The egd scope was introduced through the mouth and advanced to the third part of the duodenum. - The upper GI endoscopy was accomplished without difficulty. - The patient tolerated the procedure well. Findings: - The examined esophagus was normal. - A single large semi-pedunculated polyp with no bleeding was found on the lesser curvature of the stomach. - The examined duodenum was normal. - There was blanching of the lesser curvature of the stomach. Pale whitish areas of uncertain etiology these were sampled with 2 biopsies. Subsequent to this that blanching disappeared and mucosa returned to normal on questioning anesthesia had given her norepinephrine for pressure support which I suspect as this appearance related to vasospasm. With return of normal mucosa the biopsies were not sent for histology Impression: - Normal esophagus. - A single gastric polyp. - Normal examined duodenum. - There was blanching of the lesser curvature of the stomach. Pale whitish areas of uncertain etiology these were sampled with 2 biopsies. Subsequent to this that blanching disappeared and mucosa returned to normal on questioning anesthesia had given her norepinephrine for pressure support which I suspect as this appearance related to vasospasm. With return of normal mucosa the biopsies were not sent for histology - No specimens collected. Recommendation: - Transfuse to hemoglobin greater than 7. Observe for further bleeding. Consider polypectomy with IR or surgical backup. May benefit from EUS prior to any EMR. If being done electively . Procedure Code(s): - 69444, Esophagogastroduodenoscopy, flexible, transoral; diagnostic, including collection of specimen(s) by brushing or washing, when performed (separate procedure) Diagnosis Code(s): - K92.2, Gastrointestinal hemorrhage, unspecified - K31.7, Polyp of stomach and duodenum CPT(R) - 2022 copyright [employer]. All Rights Reserved. The CPT codes, CCI edits and ICD codes generated are intended as suggestions and were generated based on input data. These codes are preliminary and upon sand buffer review may be revised to meet current compliance and payer requirements. The provider is responsible for the final determination of appropriate codes, and modifiers. Yuri Romero MD This document has been electronically signed. Note Initiated:08/04/2024 Note Completed:08/04/2024 7:05 PM [id number]
--- NOTE | 2024-08-04 19:28 | Anesthesiology Progress Note ---
Date of Service August 04, 2024 Anesthesia Post Procedure Vital Signs Vital Signs: Temp Pulse Pulse Resp BP BP Pulse Ox 08/04/24 19:20 77 16 115/71 92 08/04/24 19:10 76 20 95/65 L 95 08/04/24 19:01 37.0 C 86 20 101/84 97 08/04/24 18:00 36.7 C 92 H 20 97/49 L 96 08/04/24 18:00 36.7 C 92 H 20 97/49 L 96 08/04/24 17:43 37 C 74 18 107/51 L 97 08/04/24 17:39 36.8 C 72 18 92/51 L 99 08/04/24 17:35 36.8 C 71 08/04/24 17:04 79 19 76/52 L 08/04/24 16:46 08/04/24 16:34 36.8 C 75 17 87/52 L 96 08/04/24 16:19 36.7 C 74 14 89/52 L 96 08/04/24 16:04 36.7 C 75 20 85/47 L 94 08/04/24 15:33 73 18 97 08/04/24 15:30 81/51 L 08/04/24 15:21 08/04/24 15:20 72 17 93/59 L 97 08/04/24 15:17 93/53 L 08/04/24 15:15 75 15 08/04/24 15:00 75 16 08/04/24 14:36 74 13 08/04/24 14:00 89/56 L 08/04/24 14:00 76 17 08/04/24 13:39 78 14 94 08/04/24 13:03 81 18 97 08/04/24 13:00 97/56 L 08/04/24 12:42 75 21 100 08/04/24 12:39 82 19 96 08/04/24 12:09 77 20 08/04/24 12:00 95/59 L 08/04/24 11:57 78 16 08/04/24 11:36 76 15 08/04/24 11:00 76 15 08/04/24 10:39 77 18 113/67 97 08/04/24 10:12 75 17 99 08/04/24 10:09 120/52 L 08/04/24 10:00 71 14 120/52 L 100 08/04/24 09:53 69 08/04/24 09:36 08/04/24 09:36 08/04/24 09:36 72 14 95/70 L 95 08/04/24 09:01 36.5 C 76 18 121/77 99 Pulse Ox O2 Del Method O2 Del Method O2 Flow Rate 08/04/24 19:20 Room Air 08/04/24 19:10 Room Air 08/04/24 19:01 Oxymask 6 08/04/24 18:00 08/04/24 18:00 Room Air 08/04/24 17:43 08/04/24 17:39 08/04/24 17:35 08/04/24 17:04 08/04/24 16:46 0 08/04/24 16:34 0 08/04/24 16:19 08/04/24 16:04 08/04/24 15:33 08/04/24 15:30 08/04/24 15:21 94 Room Air 08/04/24 15:20 Room Air 08/04/24 15:17 08/04/24 15:15 08/04/24 15:00 08/04/24 14:36 08/04/24 14:00 08/04/24 14:00 08/04/24 13:39 Room Air 08/04/24 13:03 Room Air 08/04/24 13:00 08/04/24 12:42 Room Air 08/04/24 12:39 Room Air 08/04/24 12:09 08/04/24 12:00 08/04/24 11:57 08/04/24 11:36 08/04/24 11:00 08/04/24 10:39 Room Air 08/04/24 10:12 Room Air 08/04/24 10:09 08/04/24 10:00 Room Air 08/04/24 09:53 08/04/24 09:36 Room Air 08/04/24 09:36 Room Air 08/04/24 09:36 Room Air 08/04/24 09:01 Room Air Transfer of Care Handoff Completed per policy Notes Mental Status: alert / awake / arousable Patient Amnestic to Procedure: Yes Nausea / Vomiting: adequately controlled Pain: adequately controlled Airway Patency, RR, SpO2: stable & adequate BP & HR: stable & adequate Hydration State: stable & adequate Anesthetic Complications: no major complications apparent
[2024-08-04 21:31] LABS: Hematocrit (blood only) 27.1 % (37.0-47.0)
[2024-08-04] MEDS: CHLORASEPTIC (PHENOL) 1.4% SOLN 180 ML BTL MT PRN (21:42)
[2024-08-05] MEDS: POTASSIUM CHLORIDE / WTR 10 MEQ/100 ML PLCT IV SCH (00:41)
[2024-08-05 01:38] LABS: Hematocrit (blood only) 28.4 % (37.0-47.0); Hemoglobin 9.4 g/dl (12.0-16.0)
[2024-08-05 07:43] LABS: Hematocrit (blood only) 30.9 % (37.0-47.0); Hemoglobin 10.2 g/dl (12.0-16.0); Mean Corpuscular Volume 90.9 fL (80.0-100.0); Mean Platelet Volume 9.8 fL (9.4-12.4); Platelet Count 275 K/uL (130-400); RDW Coefficient of Variation 14.7 % (11.5-14.5); RDW Standard Deviation 48.4 fL (36.4-46.3); White Blood Count 9.26 K/ul (4.8-10.8)
--- NOTE | 2024-08-05 07:47 | Hospitalist Progress Note ---
Date of Service August 05, 2024 Assessment & Plan (1) GI bleed: (2) Anemia: (3) Hypotension: (4) Dizziness: (5) Hypokalemia: Plan Patient is a 63-year-old female with h/o lupus, HTN, and GERD who presented to the ER due to hypotension and dizziness. She was also found to have hemoglobin, +ve FOBT, and hypokalemia. She was admitted for a GI bleed workup and electrolyte repletion. #GI bleed/anemia - Patient with occasional melena x1-2 months, fatigue, dizziness. FOBT +ve on admission & BUN elevated at 34. Hgb low of 6.2 --> transfused 1U pRBCs w goal of hgb > 7 --> follow-up Hgb was 9 - GI consulted, performed EGD 08/04 - Found 1 broad-based, semi-pedunculated gastric polyp; no active bleeding; some superficial erosions but no carlos ulcerations - Likely the bleeding source but w/o carlos hemorrhage or visible vessel, not appropriate for removal at this time - Last colonoscopy 2016 showed 2 tubular adenomas --> was to have 5 year repeat scan but deferred at wellness visit 07/2023 - Recommend OP EUS and EMR w/ Dr. Almanza - Ordered iron studies, b12, folate - all unremarkable - Hgb today improved to 10.2; stop trending H&H, get CBC w AM labs - Continue Protonix PPI 40mg bid - Advance diet as tolerated #Hypotension/dizziness - Likely multifactorial etiology given GI bleed, HCTZ use, and low cortisol level (0.6) - Initial BP 95/70 --> 1L NSS bolus to 120/52 but not maintained; CT head negative; held HCTZ, continued mIVF - BP 93/61 this AM while patient asymptomatic, exam normal, and BMP wnl - Given 2 x 50mg IV hydrocortisone. Started 10mg hydrocortisone po aQM + 0.1mg f ludrocortisone po qAM - Continue zofran prn - Recommend outpatient Endo appt to workup adrenal insufficiency #Hypokalemia - resolved - 2/2 to HCTZ use; med held at admission - Initially K+ 2.6 (w Mg of 2.1) --> IVF w 20meQ K + 60meQ K riders --> 3.5 t parker - Daily Mg and BMP Chronic stable conditions: HTN - hypotensive as above; holding HCTZ GERD - IV Protonix HLD - resumed lovastatin when no longer NPO VTE ppx: SCDs; Defer chemical PPx with active bleeding Diet: Advance as tolerated Dispo: med/tele Admission and Anticipated Discharge Date Admission Date: August 04, 2024 Supervising Physician Co-Signing Physician Notes Attending Physician Supervision Note: I independently interviewed and examined the patient and verified the barkley history and physical, reviewed labs and image studies and agree with findings and care plan noted above. 63 y/o F here with 1-2 months of melena, fatigue and weakness. Has been noted to be hypotensive despite stable h/h after transfusion. AAOx3 No resp distress. RRR Acute blood loss anemia / melena / acute GI bleed - EGD 08/04 with no active bleeding. Did show polyp as possible source of bleeding -continue pantoprazole PO. Adrenal insufficiency - Acute. Persistent Hypotension despite fluid repletion and stable h/h post PRBC tranfusion. S cortisol - 0.6. Unclear etiology. -IV hydrocortisone. -start PO adrenal replacement - hydrocortisone 10mgs PO TID, fludrocortisone 0.2mgs daily. -will need further evaluation as outpatient. -Holding antihypertensive Anticipate d/c once BP stabilized. Subjective Patient is feeling well this morning. Somewhat frustrated about the liquid diet. Has gotten out of bed to the bathroom, no dizziness/lightheadedness, no issues urinating. Does report feeling constipated, last BM 2 days ago. Denies DOWELL, SOB, CP, n/v, or abd pain Review of Systems 2 Review of Systems: As per HPI. Physical Exam 2 Physical Exam: Gen: NAD, WD/WN HEENT: NCAT, MMM, normal conjunctiva CV: RRR, no m/r/g, cap refill normal Resp: CTAB, symmetrical chest rise, breathing non-labored Abd: Soft, NT/ND, +BS MSK: Full ROM, normal str, no gross deformities Skin: Warm, dry, pink, no rashes or lesions Neuro: AOx3, CN II-XII grossly intact Psych: Mood-affect congruent. Speech pace and content normal. Good insight. Results & Data Results & Data Vital Signs (Past 12 Hours) Vital Signs Temp Pulse Pulse Resp BP Pulse Ox O2 Del Method 08/05/24 07:25 68 08/05/24 03:06 36.8 C 74 18 100/67 94 Room Air 08/04/24 22:53 36.8 C 78 16 95/59 L 94 Room Air 08/04/24 21:51 82 08/04/24 20:20 37.1 C 78 16 101/69 92 Room Air 08/04/24 20:14 80 Laboratory Results 08/05/24 07:05 08/05/24 07:05 Resident Activity Tracking Resident Involvement: Resident Care Provided Care Provided: Adult Hospital Medicine
[2024-08-05 08:05] LABS: Basophils # (auto) 0.01 K/uL (0.00-0.20); Basophils % (auto) 0.1 %; Immature Granulocytes # (auto) 0.12 K/uL (0.01-0.20); Immature Granulocytes % (auto) 1.3 %; Lymphocytes # (auto) 0.62 K/uL (1.20-3.40); Lymphocytes % (auto) 6.7 %; Monocytes % (auto) 1.1 %; Neutrophils # (auto) 8.41 K/uL (1.40-6.50); Neutrophils % (auto) 90.8 %
[2024-08-05 08:09] LABS: BUN Creatinine Ratio 17.5 (10-20); Calcium 8.6 mg/dl (8.6-10.3); Creatinine Clr Calc Pharmacy 73.4 ml/min; Magnesium 1.9 mg/dl (1.7-2.4); Potassium 3.5 mmol/L (3.5-5.1)
--- NOTE | 2024-08-05 10:04 | Gastroenterology Progress Note ---
Date of Service August 05, 2024 Assessment & Plan (1) GI bleed: Plan: 63 year old female with history of lupus, HTN, dyslipidemia and others below admitted through the ED w/ symptomatic anemia and report of melena - GI was asked to evaluate for suspected UGI bleed S/P EGD w/ large semi-pedunculated polyp with no bleeding was found on the lesser curvature of the stomach. There as been no further bleeding over night, HGB stable at 10.2 w/ normal BUN. Recommend OP EUS and EMR w/ Dr. Almanza Trend H&H Monitor and document GI output Transfuse PRN per primary service Diet as tolerated PO PPI 40 mg twice daily Recall GI as needed. Will sign off. Thank you for allowing us to participate in the care of this patient. Please call with any acute changes, questions or concerns. Please see addendum below with additional recommendation from my supervising physician. I spent a total of 40 minutes on the date of service in review of patient's record, and previously obtained information in person and appropriate medical visit, discussion and education of plan, with patient and/or caregiver, placing orders for tests/referral/procedures as medically necessary and documentation of pertinent clinical information in patient's medical records for their visit today. Admission and Anticipated Discharge Date Admission Date: August 04, 2024 Subjective Pt was seen and evaluated, chart reviewed. S/P EGD w/ a large gastric polyp. No further melena. No reports of BRBPR. HGB stable s/p RBC transfusion EGD 2024: A single large semi-pedunculated polyp with no bleeding was found on the lesser curvature of the stomach. Review of Systems Review of Systems: All other findings negative except as noted in HPI. Physical Exam Constitutional: WD/WN, vitals as above Respiratory: normal respiratory effort Gastrointestinal (Abdomen): normal bowel sounds, soft, nontender, no hepatosplenomegaly Skin: no rashes, warm and dry Results & Data Results & Data Vital Signs (Past 12 Hours) Vital Signs Temp Pulse Pulse Pulse Resp BP BP 08/05/24 07:58 97.9 F 69 18 93/61 L 08/05/24 07:25 68 08/05/24 03:06 98.2 F 74 18 100/67 08/04/24 22:53 98.2 F 78 16 95/59 L Pulse Ox O2 Del Method 08/05/24 07:58 96 Room Air 08/05/24 07:25 08/05/24 03:06 94 Room Air 08/04/24 22:53 94 Room Air Laboratory Results 08/05/24 08/05/24 08/04/24 Range/Units 07:05 00:59 20:40 WBC 9.26 (4.8-10.8) K/ul RBC 3.40 L (4.20-5.40) M/uL Hgb 10.2 L 9.4 L 9.0 L (12.0-16.0) g/dl Hct 30.9 L 28.4 L 27.1 L (37.0-47.0) % MCV 90.9 (80.0-100.0) fL MCH 30.0 (25.0-34.0) pg MCHC 33.0 (32.0-36.0) g/dL RDW Std Deviation 48.4 H (36.4-46.3) fL RDW Coeff of [place] 14.7 H (11.5-14.5) % Plt Count 275 (130-400) K/uL MPV 9.8 (9.4-12.4) fL Immature Gran % (Auto) 1.3 % Neut % (Auto) 90.8 % Lymph % (Auto) 6.7 % [place] % (Auto) 1.1 % Eos % (Auto) 0.0 % Baso % (Auto) 0.1 % Reticulocyte % (Auto) (0.50-2.00) % Neut # (Auto) 8.41 H (1.40-6.50) K/uL Lymph # (Auto) 0.62 L (1.20-3.40) K/uL [place] # (Auto) 0.10 L (0.11-0.59) K/uL Eos # (Auto) 0.00 (0.00-0.50) K/uL Baso # (Auto) 0.01 (0.00-0.20) K/uL Reticulocyte # (0.020-0.100) 10^6/uL Immature Gran # (Auto) 0.12 (0.01-0.20) K/uL Sodium 142 (136-145) mmol/L Potassium 3.5 3.2 L (3.5-5.1) mmol/L Chloride 110 H (98-107) mmol/L Carbon Dioxide 25 (21-32) mmol/L Anion Gap 7 (3-11) BUN 14 D (6-23) mg/dl Creatinine 0.80 (0.6-1.2) mg/dl Est Cr Clr Drug Dosing 73.4 ml/min eGFR 82.74 BUN/Creatinine Ratio 17.5 (10-20) Glucose 129 H (70-99(Fasting)) mg/dl Fasting Glucose 129 H (70-99) mg/dl Calcium 8.6 (8.6-10.3) mg/dl Magnesium 1.9 (1.7-2.4) mg/dl Iron (35-150) mcg/dl TIBC (250-450) mcg/dl Transferrin (200-360) mg/dl Transferrin % Sat (15-50) % Ferritin (8-388) ng/ml Lactate Dehydrogenase (86-244) U/L Vitamin B12 (180-914) pg/ml Folate (>5.38) ng/ml Cortisol AM Sample 0.60 L (6.2-22.6) mcg/dl Blood Type Blood Type Recheck Antibody Screen Crossmatch 08/04/24 08/04/24 08/04/24 Range/Units 15:35 14:10 09:10 WBC (4.8-10.8) K/ul RBC (4.20-5.40) M/uL Hgb 6.2 L* (12.0-16.0) g/dl Hct 18.7 L* (37.0-47.0) % MCV (80.0-100.0) fL MCH (25.0-34.0) pg MCHC (32.0-36.0) g/dL RDW Std Deviation (36.4-46.3) fL RDW Coeff of Aurelia (11.5-14.5) % Plt Count (130-400) K/uL MPV (9.4-12.4) fL Immature Gran % (Auto) % Neut % (Auto) % Lymph % (Auto) % [place] % (Auto) % Eos % (Auto) % Baso % (Auto) % Reticulocyte % (Auto) 3.19 H (0.50-2.00) % Neut # (Auto) (1.40-6.50) K/uL Lymph # (Auto) (1.20-3.40) K/uL [place] # (Auto) (0.11-0.59) K/uL Eos # (Auto) (0.00-0.50) K/uL Baso # (Auto) (0.00-0.20) K/uL Reticulocyte # 0.090 (0.020-0.100) 10^6/uL Immature Gran # (Auto) (0.01-0.20) K/uL Sodium (136-145) mmol/L Potassium 3.0 L (3.5-5.1) mmol/L Chloride (98-107) mmol/L Carbon Dioxide (21-32) mmol/L Anion Gap (3-11) BUN (6-23) mg/dl Creatinine (0.6-1.2) mg/dl Est Cr Clr Drug Dosing ml/min eGFR BUN/Creatinine Ratio (10-20) Glucose (70-99(Fasting)) mg/dl Fasting Glucose (70-99) mg/dl Calcium (8.6-10.3) mg/dl Magnesium 2.1 (1.7-2.4) mg/dl Iron 35 (35-150) mcg/dl TIBC 427 (250-450) mcg/dl Transferrin 305 (200-360) mg/dl Transferrin % Sat 8 L (15-50) % Ferritin 47.7 (8-388) ng/ml Lactate Dehydrogenase 152 (86-244) U/L Vitamin B12 387 (180-914) pg/ml Folate 16.04 (>5.38) ng/ml Cortisol AM Sample (6.2-22.6) mcg/dl Blood Type A Negative Blood Type Recheck A Negative Antibody Screen NEGATIVE Crossmatch See Detail PG Care Time/CCT Total # of Minutes Spent Total Time Spent with Patient: Total time spent is greater than 50% in coordination of care (as documented) at patient's floor/unit and/or counseling patient: Coding Level of Care Code 32986 SUB INP/OBS CARE 2/35MIN Diagnoses GI bleed K92.2
[2024-08-05] MEDS: HYDROCORTISONE SOD 50 MG in SYRINGE 0 ML IV STA ×2 (12:23→15:39)
[2024-08-05] MEDS: FLUDROCORTISONE ACETATE 0.1 MG TAB PO SCH (12:23)
[2024-08-05] MEDS: ACETAMINOPHEN 500 MG TAB PO PRN (14:59)
[2024-08-05] MEDS: POLYETHYLENE (MIRALAX) 17 GM PACK PO PRN (14:59)
[2024-08-05] MEDS: PANTOprazole 40 MG TAB PO SCH (20:42)
[2024-08-05] MEDS: LORazepam 0.5 MG TAB PO STA (20:59)
[2024-08-06 04:04] VITALS: RESP 18
[2024-08-06 06:19] LABS: Basophils # (auto) 0.01 K/uL (0.00-0.20); Basophils % (auto) 0.1 %; Eosinophils # (auto) 0.01 K/uL (0.00-0.50); Eosinophils % (auto) 0.1 %; Hematocrit (blood only) 25.9 % (37.0-47.0); Hemoglobin 8.4 g/dl (12.0-16.0); Immature Granulocytes # (auto) 0.08 K/uL (0.01-0.20); Immature Granulocytes % (auto) 0.8 %; Lymphocytes # (auto) 1.69 K/uL (1.20-3.40); Lymphocytes % (auto) 16.2 %; Mean Corpuscular Hemoglobin 29.4 pg (25.0-34.0); Mean Corpuscular Hgb Conc 32.4 g/dL (32.0-36.0); Mean Corpuscular Volume 90.6 fL (80.0-100.0); Mean Platelet Volume 9.9 fL (9.4-12.4); Monocytes # (auto) 0.45 K/uL (0.11-0.59); Monocytes % (auto) 4.3 %; Neutrophils # (auto) 8.19 K/uL (1.40-6.50); Neutrophils % (auto) 78.5 %; Platelet Count 243 K/uL (130-400); RDW Coefficient of Variation 14.9 % (11.5-14.5); RDW Standard Deviation 47.8 fL (36.4-46.3); Red Blood Count 2.86 M/uL (4.20-5.40); White Blood Count 10.43 K/ul (4.8-10.8)
[2024-08-06 06:21] LABS: BUN Creatinine Ratio 19.8 (10-20); Calcium 8.4 mg/dl (8.6-10.3); Creatinine Clr Calc Pharmacy 68.3 ml/min; Magnesium 1.9 mg/dl (1.7-2.4); Potassium 3.5 mmol/L (3.5-5.1)
--- NOTE | 2024-08-06 07:05 | Discharge Summary ---
Date of Service August 07, 2024 Admission HPI Per Admitting Provider Patient is a 63-year-old female with a Pmhx of HTN and GERD. she presented to the ER today due to hypotension and dizziness. Her hypotension resolved with 1 L NSS bolus. She is being admitted for a GI bleed workup due to hemoglobin and positive occult stool. She was also found to be hypokalemic; will replete electrolytes on admission. Patient seen at bedside with her boyfriend present. 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 She stated that on Thursday she was feeling off, fatigue and just overall was not feeling good. She thought she was fighting the bugs going around. Despite the fatigue she still is able to work a 14-hour shift yesterday. She then stated that yesterday she was dizzy and would develop nausea with the dizziness; denies vomiting. The dizziness is positional. When she took her blood pressure this morning it was 80/52 so she did not take her morning blood pressure medication. She also endorses melena for approximately 1 to 2 months, has these episodes about once a week. She denies any bright red blood in stool, hematuria, hematemesis. She also endorses feeling cold for the past few months, more than her baseline. Patient denies headache, vision changes, dyspnea, chest pain, abdominal pain, vomiting, edema. She denies frequent ibuprofen use, did take 2 yesterday because she was not feeling well. She denies any past history of anemia, GI bleeds, known gastric ulcers. She did have anemia while . patient last ate this morning at 530, had 2 cups of coffee, no meal today. Regarding her hypokalemia, was started on hydrochlorothiazide November 2023 due to edema with amlodipine use which was discontinued. She has been taking it regularly without any adverse reactions. She does endorse frequent muscle cramps in her feet, however is a nurse and relates it to working. She also had decreased p.o. intake yesterday due to the nausea. She tries to drink lots of water daily. Patient does have a smoking history, quit smoking in April 2023. She does occasionally drink alcohol, beer on the weekends, no daily use. She denies past history of CVA, DM, previous VTE. She did not take her home medications this morning; will hold on admission with n.p.o. status. She wishes to be full code at this time. Admission Exam Per Admitting Provider The patient is awake, alert and oriented 3, well developed and well nourished, normocephalic and atraumatic, in no acute distress. Non-toxic appearing. HEENT- EOMI, mucous membranes moist. Hearing grossly intact. Heart-normal S1 and S2. No murmurs, rubs or gallops. Lungs-clear bilaterally, no respiratory distress, no accessory muscle use. Abdomen-normal bowel sounds and soft. No ascites noted. Non-tender. Extremities- no clubbing, cyanosis, or edema. Rheumatologic-normal range of motion. Psychiatric-normal affect. Principal Diagnosis anemia 2/2 GIB, hypotension Discharge Exam Gen: WD/WN, NAD HEENT: NCAT, MMM, normal conjunctiva CV: RRR, no m/r/g, cap refill normal Resp: CTAB, symmetrical chest rise, breathing non-labored Abd: Soft, NT/ND, +BS MSK: Full ROM, normal str, no gross deformities Skin: Warm, dry, pink, no rashes or lesions Neuro: AOx3, CN II-XII grossly intact Psych: Mood-affect congruent. Speech pace and content normal. Good insight. Discharge Data Allergies Allergy/AdvReac Type Severity Reaction Status Date / Time iodine Allergy Mild SKIN Verified 11/13/23 11:29 IRRITATION Consultations 08/04/24 10:26 ED Decision to Admit Stat 08/04/24 10:51 Consult Gastroenterology Stat Procedures Performed Operation Date: 08/04/24 08:50 Actual Procedures p Esophagogastroduodenoscopy(Not Applicable) - Yuri Romero MD Ordered Studies 08/07/24 06:06 08/07/24 06:06 08/04/24 09:15 CT head/brain wo con Stat CLINICAL HISTORY: 63 years-old Female with dizzy. Acute dizziness COMPARISON: 11/23/2023 FINDINGS: No acute intracranial hemorrhage, midline shift, intracranial mass, hydrocephalus, territorial ischemia or abnormal extra-axial collection. Partially empty sella. Mild involutional changes. The calvarium is intact. The paranasal sinuses, mastoid air cells, and middle ear cavities are clear. IMPRESSION: No acute intracranial abnormality. Hospital Course (1) GI bleed: (2) Anemia: (3) Hypotension: (4) Dizziness: (5) Hypokalemia: Plan Patient is a 63-year-old female with h/o lupus, HTN, and GERD who presented to the ER due to hypotension and dizziness. She was also found to have hemoglobin, +ve FOBT, and hypokalemia. She was admitted for a GI bleed workup and electrolyte repletion. She was deemed safe for discharge when labs and vitals stabilized and outpatient follow-up appts were decided. #GI bleed/anemia - Sx of occasional melena x1-2 months, fatigue, dizziness. FOBT +ve on admission + BUN elevated at 34. Hgb low of 6.2 --> transfused 1U pRBCs w goal of hgb > 7 --> follow-up Hgb was 9 - GI consulted. Performed EGD 08/04. Found 1 broad-based, semi-pedunculated gastric polyp; no active bleeding; some superficial erosions but no carlos ulcerations. Will be managed outpatient. Recommend OP EUS and EMR w/ Dr. Almanza - GI also noted pt's last colonoscopy 2016 showed 2 tubular adenomas --> she was to have 5-year repeat scan but deferred at wellness visit 07/2023. Should get outpatient colonoscopy after discharge for health maintenance and to eval LGIB - On day of discharge Hgb improved to 8.6. Pt asymptomatic & tolerating regular diet. #Hypotension/dizziness - Likely multifactorial etiology given GI bleed, HCTZ use, and apparent adrenal insufficiency. Initial BP 95/70. CT head negative. HCTZ was held & pt kept on mIVF - BP improved to 120/52 after 1L NSS bolus but was not maintained; pt persistently in the ~90s/50s, mildly symptomatic, w normal exam and BMP. - Due to low cortisol level (0.6), started on steroids. Pt received 2 x 50mg IV hydrocortisone, and later 1 x 100mg. Started on 0.1mg fludrocortisone po qAM. Started on hydrocortisone w multiple dose adjustments: 10mg aQM po --> 10mg TID po --> 50 mg IV q6h - She will be discharged on hydrocortisone (20mg AM + 10mg PM) and will need to follow up with GI and Endo to further work up etiology of hypotension. Chronic stable conditions: HTN - hypotensive as above so HCTZ; will continue to hold until outpt f/u appt GERD - Continued Protonix 40mg po BID Total Time Total Time Spent Total Time Spent (In Minutes): See attending documentation Discharge Plan Discharge Items Patient Disposition: Home - Self-Care Reason For Visit: GI BLEED, HYPOTENSION, HYPOKALEMIA Discharge Diagnosis: GI bleed Activity: Per Instructions section Non-emergency contact: Primary Care Provider Call non-emergency contact if: you have any medication questions and your symptoms worsen Follow-up/Referrals: Flako Jung, [Primary Care Provider] - 08/15/24 9:20 am Diet: Regular Addtl Attending Provider Instructions: You were admitted to the hospital for dizziness and weakness, likely due to hypotension. You were evaluated for a GI bleed and resultant anemia. We gave you an IV fluid bolus and a blood transfusion; after these interventions, your symptoms improved and your hemoglobin harrison appropriately. Our GI team performed an EGD, which showed a gastric polyp without any actively bleeding. They determined it can be managed outpatient. We also found that your cortisol level was very low, which is a potential explanation for the hypotension, so we also started you on steroids. It took a while for your blood pressure to respond, and you required more IV fluids and increasing doses of steroids. You were deemed safe for discharge when your hemoglobin stabilized and you blood pressure remained within normal limits without requiring IV fluids. We cannot be certain if your low blood pressure was due to blood loss/GI bleed or endocrine abnormalities. Therefore, you will continue the oral steroids and follow up with a GI doctor after discharge. You will also need to see an granite polisher machine to further investigate the reason for your low cortisol. Medications Your medication list has been reviewed and reconciled. An updated list is included with your discharge paperwork; please review this list closely and make note of any changes. We sent a prescription for hydrocortisone to your [facility]. Take 20mg (two x 10mg tablets) in the morning and one tablet in the afternoon. This may be altered or stopped at your GI follow-up appointment. Do not take your HCTZ or any NSAIDs like ibuprofen until you meet with your primary or GI provider. Take your medications as instructed; do not skip a dose. Make sure all of your doctors know every medicine you are taking (including [id number] medicines, vitamins, and supplements). Call your PCP before taking any new medicines because some of these may interact with your current medications, or may make your symptoms worse. Follow-up appointments: Make a follow-up appointment with your PCP within the next week. It is very important that you follow up with them shortly after discharge so they can stay updated on your hospitalization and potential changes in your care. Make a follow-up appointment with GI within 7-10 days of discharge. You will need an endoscopic ultrasound (EUS) and endoscopic mucosal resection (EMR) outpatient with Dr. Almanza. It is also strongly recommended that you get a c olonoscopy as your most recent was abnormal and more than 5 years ago. You should follow up with Endocrinology for outpatient evaluation for adrenal insufficiency, given your low cortisol level. If you do not hear from their office in 7-10 days, you can contact them at . Keep all your follow-up appointments as already scheduled. If you cannot make an appointment, notify your provider to reschedule. If you have trouble scheduling appointments or need referrals, your PCP can facilitate. Contact your PCP if your symptoms return or worsen. Call 911 or go to the ER if you experience any of the following: Sudden, severe abdominal pain or nausea/vomiting Severe chest pain, or chest pain that radiates (moves) to your jaw or arm Sudden, severe shortness of breath or difficulty breathing Thank you for allowing us to participate in your care. Pending Studies at Discharge: No Stand-Alone Forms: [facility], Smoking Cessation Medications and DC Order Prescriptions: New hydrocortisone 10 mg tablet See Rx Instructions .ROUTE .COMPLEX Qty: 45 0RF Rx Instructions: Take 20 mg (2 tablets) every morning. Take 10 mg (a single tablet) every afternoon. Continued omeprazole 20 mg capsule,delayed release(DR/EC) 20 mg PO BID Qty: 180 3RF lorazepam 0.5 mg tablet 0.25 mg PO DAILY PRN (Reason: Anxiety) lovastatin 10 mg tablet 10 mg PO DAILY Rx Instructions: TAKE ONE TABLET BY MOUTH EVERY DAY Held hydrochlorothiazide 25 mg tablet 25 mg PO DAILY Qty: 90 3RF Hold Instructions: Resume on 08/20/24. Hold until discussion with PCP in light of recent hypotension and hypokalemia ibuprofen 200 mg Tablet 400 mg PO DAILY PRN (Reason: Pain) Hold Instructions: Resume on 08/20/24. Held until cleared by PCP/GI provider in light of GI bleed Discharge Orders: Discharge Order (Routine); Ordered 08/07/24 Ordered By: Roney Keane Admission Data Admit Date/Time: 08/04/24 10:55 Attending Provider: Gia Voss Admit Provider: Chidi Martin Primary Care Provider: Flako Jung Other Providers: Chidi Martin; Yuri Romero Other Interventions: Discharge Summary Assessment (RN) Last Done: 08/07/24 12:41 Supervising Physician Co-Signing Physician Notes Attending Physician Supervision Note: I independently interviewed and examined the patient and verified the barkley history and physical, reviewed labs and image studies and agree with findings and care plan noted above. 63 y/o F here with 1-2 months of melena, fatigue and weakness. [place] much better this am. AAOx3 No resp distress. RRR Acute blood loss anemia / melena / acute GI bleed - EGD 08/04 with no active bleeding. Did show polyp as possible source of bleeding -h/h stayed stable after transfusion. -continue home PPI -Will need outpatient GI follow up established Hypotension/Adrenal insufficiency - Acute. Persistent Hypotension despite fluid repletion and stable h/h post PRBC tranfusion. S cortisol - 0.6. Noted outpatient baseline hb of 16 in 2020 (no documented h/o hematochromatosis). Based on that - suspect >6unit blood loss. -Received IV hydrocortisone and IVF. -Home on hydrocortisone 20mgs in am and 10mgs at night per endocrine recommendation - Will need outpatient f/u. -Stop antihypertensive f/u with pcp in one week. Resident Activity Tracking Resident Involvement: Resident Care Provided Care Provided: Adult Hospital Medicine
[2024-08-06] MEDS: FLUDROCORTISONE ACETATE 0.1 MG TAB PO SCH (08:31)
[2024-08-06] MEDS: HYDROCORTISONE 10 MG TAB PO SCH ×2 (08:32→14:46)
[2024-08-06] MEDS ORDERED: HYDROCORTISONE 10 MG TAB PO SCH (09:00)
[2024-08-06 11:26] LABS: Hematocrit (blood only) 26.1 % (37.0-47.0); Hemoglobin 8.7 g/dl (12.0-16.0)
[2024-08-06] MEDS: SODIUM CHLORIDE 0.9% 1,000 ML IV SCH (11:26)
--- NOTE | 2024-08-06 12:42 | Gastroenterology Progress Note ---
Date of Service August 06, 2024 Assessment & Plan (1) GI bleed: Plan: I think the large melenic stool is just getting rid of the blood from her bleed, which she hadn't done prior to this and it was aided by miralax. BP is in the range it has been. H/H probably just equilibration after transfusion. Would not favor repeating eGD now and just observing. Admission and Anticipated Discharge Date Admission Date: August 04, 2024 Subjective Asked to see patient because of "large black stool" passed this morning. Patient tells me she has not had a bowel movement since her bleeding started. Took dose of miralax yesterday and then today and had large half solid half liquid black stool. BP upper 90's and hgb 8.7. She doesn't feel great now. Physical Exam Physical Exam: She looks well Constitutional: WD/WN, vitals as above Gastrointestinal (Abdomen): normal bowel sounds, soft, nontender, no hepatosplenomegaly Results & Data Vital Signs (Past 12 Hours) Vital Signs Temp Pulse Pulse Resp BP Pulse Ox O2 Del Method 08/06/24 11:32 37.0 C 70 18 97/64 L 95 Room Air 08/06/24 08:29 36.8 C 70 18 104/68 96 Room Air 08/06/24 07:14 64 08/06/24 04:03 36.5 C 72 18 102/57 L 98 Room Air
--- NOTE | 2024-08-06 15:48 | Hospitalist Progress Note ---
Date of Service August 06, 2024 Assessment & Plan (1) GI bleed: (2) Anemia: (3) Hypotension: (4) Dizziness: Plan Patient is a 63-year-old female with h/o lupus, HTN, and GERD who presented to the ER due to hypotension and dizziness. She was also found to have hemoglobin, +ve FOBT, and hypokalemia. She was admitted for a GI bleed workup and electrolyte repletion. Transfused 2u pRBCs. EGD on 08/04. Will discharge when BP stable #GI bleed/anemia - Patient with occasional melena x1-2 months, fatigue, dizziness. FOBT +ve on admission & BUN elevated at 34. Hgb low of 6.2 --> transfused 1U pRBCs w goal of hgb > 7 --> follow-up Hgb was 9 - GI consulted: performed EGD 08/04; found 1 broad-based, semi-pedunculated gastric polyp; no active bleeding; some superficial erosions but no carlos ulcerations. Determined lesion not appropriate for removal at this time - Recommend OP EUS and EMR w/ Dr. Almanza - Note, last colonoscopy 2016 showed 2 tubular adenomas --> was to have 5 year repeat scan but deferred at wellness visit 07/2023 - Hgb today down to 8.4; pt later reported large, black BM --> stat H&H, contacted GI - Repeat Hgb 8.7; drop in AM labs likely just equilibration; BM was 1st since bleed occurred, which explains the blood. - Planned for discharge today, but kept for more observation given BP persistently low & Hgb not quite stable - Continue CBC w AM labs & Protonix po 40mg bid #Hypotension/dizziness - Likely multifactorial etiology given GI bleed, HCTZ use, and low cortisol level (0.6) - Initial BP 95/70 --> 1L NSS bolus to 120/52 but not maintained; CT head negative; held HCTZ, continued mIVF - BP persistently ~90s/50s. Patient mildly symptomatic, exam normal, BMP wnl. Still some concern BP persistently low so some concern for adrenal crisis - Given 2 x 50mg IV hydrocortisone. Started 10mg hydrocortisone po TID + 0.1mg f ludrocortisone po qAM - Continue zofran prn - Recommend outpatient Endo appt to workup adrenal insufficiency Chronic stable conditions: HTN - hypotensive as above; holding HCTZ GERD - IV Protonix HLD - resumed lovastatin when no longer NPO VTE ppx: SCDs; Defer chemical PPx with active bleeding Diet: Advance as tolerated Dispo: med/tele Admission and Anticipated Discharge Date Admission Date: August 04, 2024 Supervising Physician Co-Signing Physician Notes Attending Physician Supervision Note: I independently interviewed and examined the patient and verified the bark[place] history and physical, reviewed labs and image studies and agree with findings and care plan noted above. 63 y/o F here with 1-2 months of melena, fatigue and weakness. This am - had large BM - black after taking miralax. No BM yesterday. [place] weak and nauseated. AAOx3 No resp distress. RRR Acute blood loss anemia / melena / acute GI bleed - EGD 08/04 with no active bleeding. Did show polyp as possible source of bleeding -h/h stable. Will recheck in setting of persistent symptoms. -continue pantoprazole PO. Hypotension/Adrenal insufficiency - Acute. Persistent Hypotension despite fluid repletion and stable h/h post PRBC tranfusion. S cortisol - 0.6. Noted outpatient baseline hb of 16 in 2020 (no documented h/o hematochromatosis). Based on that - suspect >6unit blood loss. -IV hydrocortisone. -IVF -Holding antihypertensive -Reached out to endocrine - awaiting response. Subjective Doing well today. Still reports some dizziness, especially when sitting up from lying down. Denies DOWELL, SOB, CP, abd pain. Review of Systems 2 Review of Systems: As per HPI. Physical Exam 2 Physical Exam: Gen: NAD, WD/WN HEENT: NCAT, MMM CV: RRR, no m/r/g, cap refill normal Resp: CTAB, symmetrical chest rise, breathing non-labored Abd: Soft, NT/ND, +BS MSK: Full ROM, normal str, no gross deformities Skin: Warm, dry, pink, no rashes or lesions Neuro: AOx3, CN II-XII grossly intact Psych: Mood-affect congruent. Speech pace and content normal Results & Data Results & Data Vital Signs (Past 12 Hours) Vital Signs Temp Pulse Pulse Resp BP Pulse Ox O2 Del Method 08/06/24 15:18 81 08/06/24 15:00 36.8 C 79 18 85/51 L 95 Room Air 08/06/24 11:32 37.0 C 70 18 97/64 L 95 Room Air 08/06/24 08:29 36.8 C 70 18 104/68 96 Room Air 08/06/24 07:14 64 08/06/24 04:03 36.5 C 72 18 102/57 L 98 Room Air Laboratory Results 08/06/24 11:07 08/06/24 05:42 Resident Activity Tracking Resident Involvement: Resident Care Provided Care Provided: Adult [facility]
[2024-08-06 18:52] LABS: Hematocrit (blood only) 27.4 % (37.0-47.0); Hemoglobin 8.9 g/dl (12.0-16.0)
[2024-08-06] MEDS: HYDROCORTISONE SOD 100 MG in SYRINGE 0 ML IV ONE (19:07)
[2024-08-06] MEDS: MELATONIN 3 MG TAB PO SCH (20:52)
[2024-08-07 06:26] LABS: Basophils # (auto) 0.02 K/uL (0.00-0.20); Basophils % (auto) 0.2 %; Eosinophils # (auto) 0.01 K/uL (0.00-0.50); Eosinophils % (auto) 0.1 %; Hematocrit (blood only) 26.3 % (37.0-47.0); Hemoglobin 8.6 g/dl (12.0-16.0); Immature Granulocytes # (auto) 0.08 K/uL (0.01-0.20); Immature Granulocytes % (auto) 0.8 %; Lymphocytes # (auto) 1.86 K/uL (1.20-3.40); Lymphocytes % (auto) 17.5 %; Mean Corpuscular Hgb Conc 32.7 g/dL (32.0-36.0); Mean Corpuscular Volume 91.6 fL (80.0-100.0); Mean Platelet Volume 9.7 fL (9.4-12.4); Monocytes # (auto) 0.44 K/uL (0.11-0.59); Monocytes % (auto) 4.2 %; Neutrophils # (auto) 8.19 K/uL (1.40-6.50); Neutrophils % (auto) 77.2 %; Platelet Count 272 K/uL (130-400); RDW Coefficient of Variation 15.1 % (11.5-14.5); RDW Standard Deviation 48.4 fL (36.4-46.3); Red Blood Count 2.87 M/uL (4.20-5.40)
[2024-08-07 06:38] LABS: BUN Creatinine Ratio 20.5 (10-20); Calcium 8.1 mg/dl (8.6-10.3); Creatinine Clr Calc Pharmacy 75.4 ml/min; Potassium 3.3 mmol/L (3.5-5.1)
[2024-08-07] MEDS: HYDROCORTISONE SOD 50 MG in SYRINGE 0 ML IV SCH (09:21)
--- NOTE | 2024-08-07 09:55 | Gastroenterology Progress Note ---
Date of Service August 07, 2024 Assessment & Plan (1) GI bleed: Plan: She is stable from GI standpoint. Okay with me to go home Admission and Anticipated Discharge Date Admission Date: August 04, 2024 Subjective Feels good. No more bowel movements. H/H are stable Physical Exam Physical Exam: She looks well Constitutional: WD/WN, vitals as above Results & Data Vital Signs (Past 12 Hours) Vital Signs Temp Pulse Pulse Resp BP BP Pulse Ox 08/07/24 07:57 37.0 C 69 18 104/64 96 08/07/24 07:19 60 08/07/24 03:49 36.4 C L 58 L 18 119/71 98 08/07/24 00:13 36.6 C 63 18 96/64 L 96 08/06/24 22:04 61 O2 Del Method 08/07/24 07:57 Room Air 08/07/24 07:19 08/07/24 03:49 Room Air 08/07/24 00:13 Room Air 08/06/24 22:04
[2024-08-07 11:21] VITALS: TEMP 97.3; O2SAT 98
[2024-08-07 12:45] VITALS: BP 119/71; PULSE 74
== END 2024-08-07 13:23 | disposition home or self-care (01) ==
LOC: ED 08:42 → INTOOBSV 10:55 → EDINP 10:55 → SUATTDRO 10:55 → EDINP 18:23 → 2N 19:57
DX: E87.6 Hypokalemia; K92.1 Melena; Z87.891 Personal history of nicotine dependence; I95.9 Hypotension, unspecified; R42 Dizziness and giddiness; I10 Essential (primary) hypertension; E78.5 Hyperlipidemia, unspecified; K31.7 Polyp of stomach and duodenum; Z91.041 Radiographic dye allergy status; M32.9 Systemic lupus erythematosus, unspecified; I73.00 Raynaud's syndrome without gangrene; Z79.899 Other long term (current) drug therapy; D64.9 Anemia, unspecified